=== PATIENT | male | born 1980 | race Caucasian/White ===

== ENCOUNTER 2019-12-09 18:27 | Observation (INO) | payer OTHER, SELFPAY ==
[2019-12-09] VITALS (26 sets, daily range): BP systolic 125–162; BP diastolic 61–89; PULSE 100–115; RESP 18–24; TEMP 36.4–36.7; O2SAT 92–100; BMI 65.5
--- NOTE | ~2019-12-09 | XR_ITS ---
XR chest 2V DATE: 12/09/2019 20:15 INDICATION: Shortness of breath. Bilateral leg swelling. TECHNIQUE: PA and lateral views COMPARISON: 09/07/2016 two-view chest FINDINGS: Cardiomegaly. There is mild pulmonary vascular congestion and redistribution. No pulmonary consolidation is evident. No pleural effusion. No pneumothorax. IMPRESSION: Cardiomegaly, mild congestive heart failure Reviewed, dictated and finalized at location A.
--- NOTE | ~2019-12-09 | CT_ITS ---
EXAMINATION: CT abdomen pelvis w con DATE: 12/09/2019 20:06 INDICATION: Low abdominal pain TECHNIQUE: Computed tomography (CT) of the abdomen and pelvis was performed with 100 cc Omnipaque 350 intravenous contrast. Automated exposure control and iterative reconstruction technique were employe d. Exam dose: 1620.09 mGy-cm total exam DLP. COMPARISON: None. FINDINGS: The lung bases are clear of infiltrate or consolidation. Mild cardiomegaly. No pericardial or pleural effusion. Small fat-containing right foramen of Bochdalek hernia There is surface nodularity of liver suggestive of cirrhosis. There is splenomegaly, spleen measuring almost 20 cm vertical dimension. There is suggestion of cholelithiasis. There are considerable limitations and poor soft tissue detail due to morbid obesity, but no obvious hepatic, splenic, pancreatic, adrenal or renal space-occupying mass lesion is detected. No apparent u rinary tract calculus or hydroureteronephrosis. The urinary bladder is essentially unremarkable, agai n given the limitations due to patient size. Diverticulosis of the colon; no CT evidence of diverticulitis. No bowel obstruction, bowel wall thick ening, pneumatosis or intraperitoneal free air. Normal caliber of the abdominal aorta. No intraperitoneal or retroperitoneal or pelvic mass lesion or adenopathy or ascites is evident. Diffuse idiopathic skeletal hyperostosis of the lower thoracic spine. Bilateral hip osteoarthritis. IMPRESSION: Limited examination due to morbid obesity Suggestion of cirrhosis Splenomegaly Suggestion of cholelithiasis; consider sonographic correlation Diverticulosis of the colon Reviewed, dictated and finalized at Location A. Reviewed, dictated and finalized at location A.
--- NOTE | ~2019-12-09 | CT_ITS ---
EXAMINATION: CTA chest PE protocol DATE: 12/09/2019 21:03 INDICATION: Shortness of breath TECHNIQUE: Computed tomography angiography (CTA) of the chest was performed with 100 mL Omnipaque-350 intravenous contrast timed to evaluate the pulmonary arteries. Coronal maximum intensity projection 3D-reconstructions were created by the technologist. Automated exposure control and iterative reconst ruction technique were employed. Exam dose: 895.85 mGy-cm total exam DLP. COMPARISON: 12/08/2021 view chest FINDINGS: Examination limited due to body habitus. No central pulmonary embolus is identified. There is limited detail of the peripheral pulmonary arteries. Approximately 12 x 24 mm prevascular lymph node; otherwise no hilar or mediastinal mass lesion or lym phadenopathy. No thoracic aortic aneurysm or dissection is evident. Heart size within normal range. No pericardial or pleural effusion. No pulmonary infiltrate or consolidation. Surface nodularity of liver is suggested. Splenomegaly. IMPRESSION: No evidence of central pulmonary embolism; limited detail of the peripheral pulmonary ar teries Reviewed, dictated and finalized at Location A. Reviewed, dictated and finalized at location A. IMPRESSION: No evidence of central pulmonary embolism; limited detail of the p eripheral pulmonary arteries
--- NOTE | 2019-12-09 18:39 | ED.GENADULT ---
HPI - General Adult General Chief complaint: Skin/Abscess/Foreign Body Stated complaint: Bilateral Leg/Foot Swelling Time Seen by Provider: 12/09/19 18:38 Source: patient Mode of arrival: ambulatory Limitations: no limitations History of Present Illness HPI narrative: 39-year-old male patient presents to the emergency department with complaints of bilateral lower extremity swelling and abdominal pain. Patient states about 4 weeks ago he was admitted to [facility] with cellulitis of the abdomen. Patient states that he had IV antibiotics and they discharged him home and he was feeling better but states that his symptoms quickly returned. Patient states that now he is having swelling to his abdomen along with increased swelling to the lower extremities and states that his right foot and leg are more painful than the left. Patient states he has not been walking around much and is been very sedentary. Patient states he has had a little bit of shortness of breath but does have a history of asthma and COPD. Patient denies any chest pain. Patient denies any fevers. Patient states he has had some chills and sweats recently. Denies any history of diabetes. Patient states he does not have a primary doctor however he recently got insurance about a month ago and is supposed to be seeing a new doctor this coming Tuesday. Related Data Home Medications Medication Instructions Recorded Confirmed methocarbamol mg 12/09/19 nifedipine PO 12/09/19 12/09/19 Allergies Allergy/AdvReac Type Severity Reaction Status Date / Time amoxicillin Allergy Unknown Anaphylaxis Verified 12/09/19 18:37 Penicillins Allergy Unknown Anaphylactic Verified 12/09/19 18:37 Shock Review of Systems Review of Systems: Narrative: CONSTITUTIONAL: Denies fever, positive chills, and sweats. EYES: Denies visual changes, redness, or discharge. ENT: Denies rhinorrhea, congestion, sore throat, or otalgia. CARDIOVASCULAR: Denies chest pain, palpitations, or edema. RESPIRATORY: Denies cough, positive dyspnea. GASTROINTESTINAL: Positive abdominal pain, nausea, denies vomiting, or diarrhea. GENITOURINARY: Denies dysuria or hematuria. SKIN: Denies rash or itching. MUSCULOSKELETAL: Denies back pain, joint pain, or myalgia. Positive lower extremity swelling and pain to the right foot. NEUROLOGIC: Denies headache, numbness, or weakness. PSYCHIATRIC: Denies anxiety or depression. [facility] Comments At the time of my signature I agree with nursing past medical history, surgical, social, and family history. There is no relevant family history pertinent to the presenting complaint. Exam Narrative: Exam Narrative: GENERAL: Well-appearing, well-nourished, and in no acute distress. HEAD: Normocephalic, atraumatic. EYES: PERRLA and EOMI. ENT: Nares clear, no rhinorrhea or epistaxis. Mucous membranes moist. NECK: Supple. No lymphadenopathy CHEST: Patient has slight rhonchi noted to the right lobe on expiratory. No obvious wheezing. Hard to hear the lungs well due to patient's habitus. No respiratory distress. Patient able talk in clear complete sentences. HEART: Regular rate and rhythm. No murmur heard. Normal peripheral pulses. ABDOMEN: Distended abdomen. The bilateral lower abdomen is hard and has multiple pustules, warm with erythema noted.. No guarding, rebound tenderness, or rigid. No pulsatilla masses. Unable to assess patient's bowel sounds due to his habitus.. No organomegaly. Negative Valenzuela?s sign. No periumbicial tenderness. No scars or surface trauma. EXTREMITIES: Normal range of motion. Patient has approximately 1-2+ pitting edema noted to bilateral lower extremities. The right foot is more swollen than the left with erythema and warmth present. DP pulses palpated to the left foot, decreased DP pulses noted on the right foot. SKIN: Warm, dry, no rash. NEURO: No focal deficits. Alert and oriented x3. Course Reevaluation(s) Reevaluation #1: Spoke
--- NOTE | 2019-12-09 18:48 | ECG_ITS ---
Measurements Intervals [place] Rate: 106 P: 44 ID: [id number] QRS: -1 QRSD: 93 T: 31 QT: 353 QTc: 470 Interpretive Statements SINUS TACHYCARDIA BASELINE ARTIFACT- I, II, III ABNORMAL ECG Electronically Signed On 12-09-2019 20:46:02 CDT by Tao Muller D.O.
[2019-12-09] MEDS: MORPHINE SULFATE 4 MG/ML INJ IV PUSH (19:08)
[2019-12-09] MEDS: ONDANSETRON INJ 4 MG/2 ML VIAL IV PUSH (19:08)
--- NOTE | 2019-12-09 19:10 | PC.NURSE ---
Report received from KASHMIR Julio. Assumed care of patient.
[2019-12-09 19:22] LABS: Basophils Percent Auto 0.3 % (0.2-1.2); Eosinophils Absolute Auto 0.1 K/mm3 (0-0.3); Hematocrit 35.6 % (42.0-52.0); Hemoglobin 11.8 g/dL (14.0-18.0); Immature Granulocyte Absolute 0.01 K/mm3 (0.00-0.031); Immature Granulocyte Percent A 0.3 % (0-0.5); Immature Platelet Fraction Pct 4.1 % (0.9-11.2); Lymphocytes Absolute Auto 1.12 K/mm3 (0.9-3.2); Lymphocytes Percent Auto 30.1 % (18.3-44.2); Mean Corpuscular HGB Conc 33.1 g/dl (32-36); Mean Corpuscular Hemoglobin 29.3 pg (26-34); Mean Corpuscular Volume 88.3 fl (80-100); Mean Platelet Volume 11.6 fl (7.4-10.4); Monocytes Absolute Auto 0.3 K/mm3 (0.1-0.6); Monocytes Percent Auto 8.1 % (2.6-8.5); Neutrophils Absolute Auto 2.2 K/mm3 (1.3-6.7); Neutrophils Percent Auto 58.2 % (45.5-73.1); Platelet Count Result 80 k/mm3 (150-375); Red Blood Count 4.03 M/mm3 (4.6-6.20); Red Cell Distribution Width 14.6 % (11.5-14.5); White Blood Count 3.7 K/mm3 (4.5-10.0)
[2019-12-09 19:31] LABS: Lactic Acid Reflex 2.2 mmol/L (0.7-2.1)
[2019-12-09 19:33] LABS: INR 1.5; Prothrombin Time 17.5 Seconds (11.1-14.7)
[2019-12-09 19:34] LABS: Alanine Aminotransferase 28 U/L (4-50); Albumin Level 3.4 g/dL (3.5-5.1); Alkaline Phosphatase 170 U/L (38-126); Aspartate Amino Transferase 53 U/L (17-59); Bilirubin,Total 1.6 mg/dL (0.2-1.3); Blood Urea Nitrogen 13 mg/dL (9-20); Calcium 8.1 mg/dL (8.4-10.2); Carbon Dioxide 25 mmol/L (22-30); Chloride 105 mmol/L (98-107); Estimated CRCL calculation 214 ml/min; Estimated Glomerular Filt Rate > 60; Glucose 196 mg/dL (75-110); Potassium 3.6 mmol/L (3.4-5.0); Sodium 136 mmol/L (137-145)
[2019-12-09 19:34] LABS: Partial Thromboplastin Time 34.4 SECONDS (22.3-36.8)
[2019-12-09 19:46] LABS: NT Pro B Type Natriuretic Pept 97 PG/ML (5-100); Troponin I 0.045 ng/mL (0.000-0.034)
[2019-12-09 20:10] LABS: D Dimer 1.97 ug/mL (<0.48)
[2019-12-09] MEDS: ASPIRIN 81 MG CHEWABLE TABLET 324 MG PO (20:12)
[2019-12-09] MEDS: SODIUM CHLORIDE 0.9% IV 1,000 ML 999 ML IV CONT (20:49)
[2019-12-09 22:18] LABS: Reflex Lactic Acid Yes or No Add Lactic
[2019-12-09 22:49] LABS: Troponin I 0.061 ng/mL (0.000-0.034)
[2019-12-10] VITALS (13 sets, daily range): BP systolic 143–155; BP diastolic 59–85; PULSE 91–105; RESP 18–22; TEMP 36.3–36.9; O2SAT 92–98
[2019-12-10 00:23] LABS: Glucose Point of Care 109 (65-105)
--- NOTE | 2019-12-10 00:37 | PC.NURSE ---
This patient, Vignesh Shaffer, was admitted to IMU Room 212-01 ON 12/09/19 at 2308. Patient/family oriented to hospital policies and general routines including ID bracelet, bed and alarms, visiting hours, pain management, procedures, bathroom and other care routines, personal items, smoking policy, room service/diet, and visiting hours. Valuables list has been completed. Information on how to activate the Rapid Response Team has been discussed. Patient/Family are encouraged to report perceived risks to care and to ask questions if they do not understand what they are told or what they should do.
[2019-12-10 00:46] LABS: Add Urine Microscopic? YES; Appearance Urine Clear (Clear); Bilirubin Urine Negative (Negative); Blood Urine Negative (Negative); Color Urine Yellow (Yellow); Glucose Urine UA 1+ mg/dL (Negative); Ketones Urine Negative (Negative); Leukocyte Esterase Ur Negative LEU/UL (Negative); Mucus Urine Rare /lpf; Nitrate Urine Negative (Negative); Protein Urine Negative (Negative); RBC Urine 0-2 /hpf (0-2); Urobilinogen Urine Negative mg/dL (<2.0)
--- NOTE | 2019-12-10 00:48 | ECHO_ITS ---
Patient Info Name: Vignesh Shaffer Age: 39 years : 1980 Gender: Male Ht: 70 in Wt: 457 lbs BSA: 3.33 m2 HR: 105 bpm BP: 148 / 75 mmHg Heart Rhythm: Tachycardia Technical Quality: Poor Exam Date: 12/10/2019 10:52 AM Exam Location: [facility] Patient Status: Inpatient Admit Date: 12/09/2019 Staff Ordering Physician: Abraham Mercedes MD Hogshead Mat Inspector: Chun Flores RDCS Attending Provider: Abraham Mercedes MD Referring Physician: Mago ALEMAN; Exam Type: CA echo dop color flow w con Study Info Indications I50.9 - Heart failure, unspecified Complete two-dimensional, color flow and Doppler transthoracic echocardiogram is performed with contrast to opacify the left ventricle and to improve the deliniation of the left ventricle endocardial borders. Contrast/Agitated Saline Contrast/Ag. Saline: Definity Amount: 3.00 ml Administered By: Sarah Berger RN Existing IV Access: Yes Reason for Poor Study: patient body habitus History/Risk Factors Edema; HTN, SOB, elevated trops. Summary 1. Technically difficult study with limited views. Despite Definity contrast administration regional wall motion assessment limited. 2. Increased aortic valve velocity secondary to hyperdynamic LV systolic function. 3. Left ventricular systolic function is hyperdynamic, estimated at >70%. 4. There is mildly increased left ventricular wall thickness. 5. The left ventricular diastolic function is normal. 6. There is trace tricuspid valve regurgitation. 7. Mild pulmonary hypertension, estimated pulmonary arterial systolic pressure is 41 mmHg. Left Ventricle Technically difficult study with limited views. Despite Definity contrast administration regional wall motion assessment limited. Left ventricular chamber dimension is normal. Left ventricular systolic function is hyperdynamic, estimated at >70%. There is mildly increased left ventricular wall thickness. The left ventricular diastolic function is normal. Right Ventricle Right ventricular chamber dimension is not well visualized. Left Atria Left atrial chamber dimension is not well visualized. Right Atria Right atrial chamber dimension is not well visualized. Aortic Valve Increased aortic valve velocity secondary to hyperdynamic LV systolic function. The aortic valve is not well visualized. There is no aortic valve stenosis. Pulmonic Valve The pulmonic valve is not well visualized. Mitral Valve The mitral valve has not well visualized. Tricuspid Valve The tricuspid valve leaflets are not well visualized. There is trace tricuspid valve regurgitation. Mild pulmonary hypertension, estimated pulmonary arterial systolic pressure is 41 mmHg. Pericardium/Pleural The pericardium appears not well visualized. Aorta The aortic root size at the sinus of Valsalva is normal. Left Ventricular Outflow Tract Name Value Normal LVOT 2D LVOT Diameter 2.17 cm LVOT Doppler LVOT Peak Gradient 8 mmHg LVOT Mean Gradient 4 mmHg LVO
[2019-12-10] MEDS: FUROSEMIDE INJ 40 MG/4 ML VIAL IV PUSH (01:22)
[2019-12-10 01:48] LABS: Troponin I 0.072 ng/mL (0.000-0.034)
--- NOTE | 2019-12-10 05:37 | PM.IMHP ---
H&P: HPI History of Present Illness Chief complaint: cellulitis Narrative: This is a pleasant 39 year old morbidly obese male who is known to have chronic HTN and chronic back pain who presented to the hospital with a complaint of bilateral lower extremity swelling and pain. The patient was recently admitted to [facility] approximately a month ago where he was treated for abdominal wall cellulitis. He states that since his discharge he has had ongoing lower abdominal redness although he has not had any pain. He reports increased lower extremity swelling and abd swelling since his last hospitalization. He has chronic shortness of breath which he attributes to his asthma but has recently noticed that his shortness of breath is much worse with any exertion. He spends most of his time sitting around and it has become difficult for him to even walk now. He denies any recent fevers, chills, cough, nausea, vomiting, dysuria, hematuria, rectal bleeding, diarrhea or focal neurological deficits. The patient was evaluated in the ER tonight and was incidentally found to have an elevated troponin. CTA chest for PE was performed and was negative for acute PE. The pateint was treated with IV antibiotics for presumed abdominal wall cellulitis. He states that he has not had any abdominal discomfort and that his abd wall redness hasn't changed in a few weeks. We have been asked to admit the patient to the hospital for his elevated troponin. Cardiology was consulted by ER provider. Review of Systems Review of Systems: All systems reviewed & are unremarkable except as noted in HPI and below PMFSH Past Medical History Medical History Asthma Chronic back pain Cirrhosis H/O: HTN (hypertension) Thrombocytopenia Surgical History Surgical History (Updated 12/12/19 @ 06:38 by Abraham Mercedes MD) Surgical history unknown Family History Family History Mother Diabetes mellitus Atrial fibrillation Father Obstructive sleep apnea Congestive heart failure Chronic obstructive pulmonary disease Bronchitis Sibling Cirrhosis Scoliosis Social History Social History Smoking status: Never smoker Second hand tobacco smoke exposure: Yes Alcohol intake: former Substance use type: does not use Gender identity (if verbalized by the patient): Male Spiritual care concerns: No Meds Home Medications and Allergies Home Medications Medication Instructions Recorded Confirmed Type methocarbamol 500 mg PRN 12/09/19 12/10/19 History nifedipine 30 mg PO DAILY 12/09/19 12/10/19 History Allergies Allergy/AdvReac Type Severity Reaction Status Date / Time amoxicillin Allergy Unknown Anaphylaxis Verified 12/09/19 18:37 Penicillins Allergy Unknown Anaphylactic Verified 12/09/19 18:37 Shock Vital Signs Vital Signs - 24 hr 12/09/19 18:31 12/09/19 18:35 12/09/19 18:37 Temperature 36.7 C Pulse Rate 115 H 115 H 112 H Respiratory Rate 19 22 H 20 Blood Pressure 142/71 H 142/71 H Pulse Oximetry 100 98 98 12/09/19 18:45 12/09/19 18:46 12/09/19 19:00 Temperature Pulse Rate 106 H Respiratory Rate 21 H Blood Pressure 159/73 H Pulse Oximetry 99 98 96 12/09/19 19:01 12/09/19 19:15 12/09/19 19:16 Temperature Pulse Rate 105 H 103 H 106 H Respiratory Rate 21 H 18 20 Blood Pressure 146/75 H 154/81 H Pulse Oximetry 92 95 95 12/09/19 19:30 12/09/19 19:31 12/09/19 19:45 Temperature Pulse Rate 104 H 105 H 104 H Respiratory Rate 21 H Blood Pressure 150/84 H Pulse Oximetry 95 95 95 12/09/19 19:46 12/09/19 20:13 12/09/19 20:15 Temperature Pulse Rate 104 H 107 H 108 H Respiratory Rate 20 19 Blood Pressure 147/85 H Pulse Oximetry 93 99 97 12/09/19 20:30 12/09/19 20:45 12/09/19 21:05 Temperature Pulse Ra
[2019-12-10 05:40] LABS: Basophils Percent Auto 0.6 % (0.2-1.2); Eosinophils Absolute Auto 0.1 K/mm3 (0-0.3); Hematocrit 34.7 % (42.0-52.0); Hemoglobin 11.5 g/dL (14.0-18.0); Immature Granulocyte Absolute 0.01 K/mm3 (0.00-0.031); Immature Granulocyte Percent A 0.3 % (0-0.5); Immature Platelet Fraction Pct 5.1 % (0.9-11.2); Lymphocytes Absolute Auto 1.06 K/mm3 (0.9-3.2); Lymphocytes Percent Auto 32.2 % (18.3-44.2); Mean Corpuscular HGB Conc 33.1 g/dl (32-36); Mean Corpuscular Hemoglobin 29.6 pg (26-34); Mean Corpuscular Volume 89.2 fl (80-100); Mean Platelet Volume 11.3 fl (7.4-10.4); Monocytes Absolute Auto 0.3 K/mm3 (0.1-0.6); Monocytes Percent Auto 9.7 % (2.6-8.5); Neutrophils Absolute Auto 1.8 K/mm3 (1.3-6.7); Neutrophils Percent Auto 54.2 % (45.5-73.1); Platelet Count Result 68 k/mm3 (150-375); Red Blood Count 3.89 M/mm3 (4.6-6.20); Red Cell Distribution Width 14.7 % (11.5-14.5); White Blood Count 3.3 K/mm3 (4.5-10.0)
[2019-12-10] MEDS: ACETAMINOPHEN 325 MG TABLET 650 MG PO ×3 (05:43→20:11)
[2019-12-10 05:46] LABS: Alanine Aminotransferase 29 U/L (4-50); Albumin Level 3.4 g/dL (3.5-5.1); Alkaline Phosphatase 170 U/L (38-126); Aspartate Amino Transferase 57 U/L (17-59); Bilirubin,Total 1.7 mg/dL (0.2-1.3); Blood Urea Nitrogen 10 mg/dL (9-20); Calcium 7.9 mg/dL (8.4-10.2); Carbon Dioxide 28 mmol/L (22-30); Chloride 102 mmol/L (98-107); Estimated CRCL calculation 246 ml/min; Estimated Glomerular Filt Rate > 60; Glucose 104 mg/dL (75-110); Potassium 3.6 mmol/L (3.4-5.0); Sodium 133 mmol/L (137-145)
[2019-12-10 06:51] LABS: Troponin I 0.075 ng/mL (0.000-0.034)
[2019-12-10 08:08] LABS: Glucose Point of Care 93 (65-105)
[2019-12-10] MEDS: NIFEdipine 30 MG TAB.ER.24 PO (09:05)
[2019-12-10] MEDS: PERFLUTREN LIPID MICROSPHERES 1.5 ML VIAL DILUTED TO 10 ML TOTAL VOLUME IV PUSH (11:17)
[2019-12-10 13:04] LABS: Glucose Point of Care 108 (65-105)
--- NOTE | 2019-12-10 13:18 | PM.CNCAR ---
Assessment and Plan Assessment and plan (1) Elevated troponin: Code(s): R79.89 - Other specified abnormal findings of blood chemistry Status: Acute Assessment and Plan: Indeterminate, clinically consistent with non [place] troponin elevation or type II infarction not secondary to ACS or acute plaque rupture. 2D Echo to assess LV/RV size/function, valve pathology pulmonary pressures. Further recommendation to follow. No indication to pursue ischemic evaluation at this time. No ischemic changes on EKG. Caution with antiplatelets at this time. DVT prophylaxis SCDs. (2) Edema: Code(s): R60.9 - Edema, unspecified Status: Acute Assessment and Plan: Clinically, patient is not in decompensated heart failure. BNP 97. Lungs clear to auscultation on room air, CT without PE or pulmonary vascular congestion. If anything, right heart failure possibility in general given morbid obesity, GENA although treated. Additional considerations include venous compression underlying liver disease given concern for cirrhotic findings, splenomegaly particularly in light of thrombocytopenia. If patient responded favorably with regression reduction in edema with diuretic therapy this would be reasonable, however, patient is not in clinically acute decompensated heart failure. I am more concerned with regards to GI etiology given hepatic findings, splenomegaly (3) Pancytopenia: Code(s): D61.818 - Other pancytopenia Status: Acute Assessment and Plan: Defer to primary service. Mild pancytopenia, Alk Phos elevation with AST/ALT in normal range, mild coagulopathy INR 1.5, but with significant thrombocytopenia. Discussed differential diagnosis in detail patient. Need to review historical data for comparison. Pt reports a h/o heavy ETOH abuse in the past but none for years. (4) Coagulopathy: Code(s): D68.9 - Coagulation defect, unspecified Status: Acute Assessment and Plan: As above, INR 1.5, moderate to severe thrombocytopenia. (5) Cellulitis: Qualifiers: Site of cellulitis: trunk Site of cellulitis of trunk: abdominal wall Qualified Code(s): L03.311 - Cellulitis of abdominal wall Code(s): L03.90 - Cellulitis, unspecified Status: Acute Assessment and Plan: Per primary service. (6) Asthma: Qualifiers: Asthma complication type: unspecified Asthma persistence: unspecified Asthma severity: unspecified severity Qualified Code(s): J45.909 - Unspecified asthma, uncomplicated Code(s): J45.909 - Unspecified asthma, uncomplicated Status: Chronic Assessment and Plan: Stable, no acute issues. (7) GENA on CPAP: Code(s): G47.33 - Obstructive sleep apnea (adult) (pediatric); Z99.89 - Dependence on other enabling machines and devices Status: Acute Assessment and Plan: Compliance with CPAP (8) Hypertension: Code(s): I10 - Essential (primary) hypertension Status: Acute Assessment and Plan: BP mildly elevated. He is not currently on direct medical therapy. Nifedipine may also contribute lower extremity edema. (9) Morbid obesity: Code(s): E66.01 - Morbid (severe) obesity due to excess calories Status: Chronic Assessment and Plan: Lifestyle modification, weight loss and reduction Clinic intake counseling. History of Present Illness History of Present Illness Consult date/time: Date of service: 12/10/19 13:18 This is a cardiology consultation at the request of Dr. Mercedes [facility] service for opinion regarding elevated troponin. Requesting physician: Abraham Mercedes MD Consult reason: Other (Elevated troponin) Reason For Visit: cellulitis Narrative: Patient is a pleasant 39-year-old morbidly obese male with a past medical history significant for hypertension, chronic back pain who presented to [facility] with complaints of 1 week worsening bilateral lower extrem
[2019-12-10 16:59] LABS: Glucose Point of Care 116 (65-105)
--- NOTE | 2019-12-10 18:55 | PM.IMPN ---
Progress Note: A&P Assessment and Plan (1) Anasarca: Code(s): R60.1 - Generalized edema Status: Acute Assessment and Plan: r/o acute on chronic CHF. The patient is clearly fluid overloaded. I suspect that he does not have abd wall cellulitis and instead has abdominal wall erythema secondary to abdominal wall edema. We will discontinue IV antibiotics and administer IV lasix. Monitor fluid status. Is and Os, daily weights. Obtain recent hospitalization records from [facility]. 12/10/19 18:55 Patient is a 39-year-old male morbidly obese with BMI 65 presented emergency department with a complaint of shortness of breath and redness swelling along abdominal wall with history of cellulitis, and also found to elevated tropes patient is seen by neurologist does not suspect acute coronary syndrome as patient BNP is close to normal highly unlikely patient is a decompensated cardiac as patient's ejection fraction is close to 70%, patient also has elevated D-dimer CTA of the chest did not show any pulmonary emboli, patient is a thrombocytopenia slightly elevated INR most likely secondary to fatty liver, patient is being treated with IV antibiotics for abdominal wall cellulitis. Along the abdomen patient has a hyperemia unlikely cellulitis will continue to monitor (2) Elevated troponin: Code(s): R79.89 - Other specified abnormal findings of blood chemistry Status: Acute Assessment and Plan: r/o ACS vs. Troponin leak. Trend troponin. No chest pain tonight. Monitor for chest pain. Cardiology has been consulted by ER provider. (3) H/O: HTN (hypertension): Code(s): Z86.79 - Personal history of other diseases of the circulatory system Status: Chronic Assessment and Plan: Monitor blood pressure. Continue nifedipine PO. (4) Morbid obesity: Code(s): E66.01 - Morbid (severe) obesity due to excess calories Status: Chronic Assessment and Plan: Healthy lifestyle choices were encouraged. (5) Asthma: Qualifiers: Asthma severity: unspecified severity Asthma persistence: unspecified Asthma complication type: unspecified Qualified Code(s): J45.909 - Unspecified asthma, uncomplicated Code(s): J45.909 - Unspecified asthma, uncomplicated Status: Chronic Assessment and Plan: Continue bronchodilators. Subjective Date/time seen: 12/10/19 18:55 Patient is a 39-year-old male morbidly obese with BMI 65 presented emergency department with a complaint of shortness of breath and redness swelling along abdominal wall with history of cellulitis, and also found to elevated tropes patient is seen by neurologist does not suspect acute coronary syndrome as patient BNP is close to normal highly unlikely patient is a decompensated cardiac as patient's ejection fraction is close to 70%, patient also has elevated D-dimer CTA of the chest did not show any pulmonary emboli, patient is a thrombocytopenia slightly elevated INR most likely secondary to fatty liver, patient is being treated with IV antibiotics for abdominal wall cellulitis. Review of Systems Review of Systems: All systems reviewed & are unremarkable except as noted in HPI and below Exam Narrative: Exam Narrative: Morbidly obese BMI of 65 Const: General: no acute distress and uncomfortable HENMT: General nose exam: Normal nares present Mouth: Yes moist mucous membranes Eyes: General: appearance normal, both eyes and all related structures Sclera: sclerae normal Neck: Neck: supple Resp: Effort & Inspection: normal respiratory effort Auscultation: clear to auscultation bilaterally Cardio: Rate: regular rate Rhythm: regular rhythm GI: Auscultation: normal bowel sounds Other: Morbidly obese Skin: Other: Along the abdomen patient has a hyperemia unlikely cellulitis will continue to monitor Neuro: Speech: normal speech Sensory Exam: normal sensation Extrem: General: normal to inspection Psych
--- NOTE | 2019-12-10 19:29 | PC.NURSE ---
Report given to KASHMIR Eric on 2nd medical. Patient will be moved to room 251.
[2019-12-10 21:29] LABS: Glucose Point of Care 131 (65-105)
[2019-12-11] MEDS: MORPHINE SULFATE 4 MG/ML INJ IV PUSH (01:54)
[2019-12-11] MEDS: ONDANSETRON INJ 4 MG/2 ML VIAL IV PUSH (01:55)
[2019-12-11 05:55] LABS: Hematocrit 33.5 % (42.0-52.0); Hemoglobin 11.1 g/dL (14.0-18.0); Immature Platelet Fraction Pct 5.9 % (0.9-11.2); Mean Corpuscular HGB Conc 33.1 g/dl (32-36); Mean Corpuscular Volume 87.5 fl (80-100); Mean Platelet Volume 10.9 fl (7.4-10.4); Platelet Count Result 65 k/mm3 (150-375); Red Blood Count 3.83 M/mm3 (4.6-6.20); Red Cell Distribution Width 14.5 % (11.5-14.5); White Blood Count 3.5 K/mm3 (4.5-10.0)
[2019-12-11 06:00] VITALS: BP 136/57; PULSE 92; RESP 18; TEMP 36.7; O2SAT 96
[2019-12-11 06:09] LABS: Alanine Aminotransferase 28 U/L (4-50); Albumin Level 3.4 g/dL (3.5-5.1); Alkaline Phosphatase 160 U/L (38-126); Aspartate Amino Transferase 53 U/L (17-59); Bilirubin,Total 1.6 mg/dL (0.2-1.3); Blood Urea Nitrogen 11 mg/dL (9-20); Carbon Dioxide 28 mmol/L (22-30); Chloride 102 mmol/L (98-107); Estimated CRCL calculation 290 ml/min; Estimated Glomerular Filt Rate > 60; Glucose 107 mg/dL (75-110); Potassium 3.8 mmol/L (3.4-5.0); Sodium 135 mmol/L (137-145)
[2019-12-11 07:53] LABS: Glucose Point of Care 94 (65-105)
[2019-12-11 08:00] VITALS: PULSE 92; RESP 18; O2SAT 96
[2019-12-11] MEDS: NIFEdipine 30 MG TAB.ER.24 PO (08:01)
[2019-12-11 11:37] LABS: Glucose Point of Care 115 (65-105)
--- NOTE | 2019-12-11 13:15 | PM.IMPN ---
Progress Note: A&P Assessment and Plan (1) Anasarca: Code(s): R60.1 - Generalized edema Status: Acute Assessment and Plan: 12/11/19 13:15 r/o acute on chronic CHF. The patient is clearly fluid overloaded. I suspect that he does not have abd wall cellulitis and instead has abdominal wall erythema secondary to abdominal wall edema. We will discontinue IV antibiotics and administer IV lasix. Monitor fluid status. Is and Os, daily weights. Obtain recent hospitalization records from [facility]. 12/10/19 18:55 Patient is a 39-year-old male morbidly obese with BMI 65 presented emergency department with a complaint of shortness of breath and redness swelling along abdominal wall with history of cellulitis, and also found to elevated tropes patient is seen by quality facilitator does not suspect acute coronary syndrome as patient BNP is close to normal highly unlikely patient is a decompensated cardiac as patient's ejection fraction is close to 70%, patient also has elevated D-dimer CTA of the chest did not show any pulmonary emboli, patient is a thrombocytopenia slightly elevated INR most likely secondary to, Liver cirrhosis and splenomegaly etiology uncertain will consult GI for further recommendation, patient is being treated with IV antibiotics for abdominal wall cellulitis., overall patient states is feeling better not a short of breath as as when he came in, he denies any chest pain palpitation fever or chills. (2) Elevated troponin: Code(s): R79.89 - Other specified abnormal findings of blood chemistry Status: Acute Assessment and Plan: r/o ACS vs. Troponin leak. Trend troponin. No chest pain tonight. Monitor for chest pain. Cardiology has been consulted by ER provider. (3) H/O: HTN (hypertension): Code(s): Z86.79 - Personal history of other diseases of the circulatory system Status: Chronic Assessment and Plan: Monitor blood pressure. Continue nifedipine PO. (4) Morbid obesity: Code(s): E66.01 - Morbid (severe) obesity due to excess calories Status: Chronic Assessment and Plan: Healthy lifestyle choices were encouraged. (5) Asthma: Qualifiers: Asthma severity: unspecified severity Asthma persistence: unspecified Asthma complication type: unspecified Qualified Code(s): J45.909 - Unspecified asthma, uncomplicated Code(s): J45.909 - Unspecified asthma, uncomplicated Status: Chronic Assessment and Plan: Continue bronchodilators. Subjective Date/time seen: 12/11/19 13:15 r/o acute on chronic CHF. The patient is clearly fluid overloaded. I suspect that he does not have abd wall cellulitis and instead has abdominal wall erythema secondary to abdominal wall edema. We will discontinue IV antibiotics and administer IV lasix. Monitor fluid status. Is and Os, daily weights. Obtain recent hospitalization records from [facility]. 12/10/19 18:55 Patient is a 39-year-old male morbidly obese with BMI 65 presented emergency department with a complaint of shortness of breath and redness swelling along abdominal wall with history of cellulitis, and also found to elevated tropes patient is seen by quality facilitator does not suspect acute coronary syndrome as patient BNP is close to normal highly unlikely patient is a decompensated cardiac as patient's ejection fraction is close to 70%, patient also has elevated D-dimer CTA of the chest did not show any pulmonary emboli, patient is a thrombocytopenia slightly elevated INR most likely secondary to, Liver cirrhosis and splenomegaly etiology uncertain will consult GI for further recommendation, patient is being treated with IV antibiotics for abdominal wall cellulitis., overall patient states is feeling better not a short of breath as as when he came in, he denies any chest pain palpitation fever or chills. Review of Systems Review of Systems: All systems reviewed & are unremarkable except as noted in HPI
[2019-12-11 14:00] VITALS: BP 111/51; PULSE 90; RESP 18; TEMP 36.7; O2SAT 92
--- NOTE | 2019-12-11 16:13 | WPDGICN ---
Assessment and Plan Assessment and plan (1) Cirrhosis: Code(s): K74.60 - Unspecified cirrhosis of liver Status: Acute Assessment and Plan: new diagnosis (had low platelets, inr 1.5, albumin 3.5)- most likely related to MUIR (extremely obese with BMI 64) but will obtain blood work to rule out other uncommon conditions including hepatitis, aih, hemochromatosis, etc (2) Morbid obesity: Code(s): E66.01 - Morbid (severe) obesity due to excess calories Status: Chronic Assessment and Plan: ideally he needs to lose weight and even consideration for bariatric surgery (3) Thrombocytopenia: Code(s): D69.6 - Thrombocytopenia, unspecified Status: Acute Assessment and Plan: from cirrhosis (4) GENA on CPAP: Code(s): G47.33 - Obstructive sleep apnea (adult) (pediatric); Z99.89 - Dependence on other enabling machines and devices Status: Acute Assessment and Plan: using cpap now (5) Edema: Code(s): R60.9 - Edema, unspecified Status: Acute GI Consult Note Consult date/time: 12/11/19 16:13 Reason for consult: new diagnosis of cirrhosis HPI: Vignesh Shaffer is a 39 year old male morbidly obese male with history of hypertension, GENA on CPAP, asthma chronic back pain admitted here with 1 week of worsening bilateral lower extremity edema and abdominal discomfort and shortness of breath. He was in [facility] last month and treated for cellulitis of the abdominal wall with antibiotics. He also has chronic exertional dyspnea he attributes to decreased activity, asthma, and chronic back pain. In the ER, troponins were slightly elevated at 0.045-0.075, no chest pain and evaluated by cardiology. CT the abdomen pelvis and CT angiogram of the chest PE protocol technically difficult but suggested possible cirrhotic changes, diverticulosis, no PE but cardiomegaly without heart failure. proBNP was normal at 97. Also had thrombocytopenia. Denies history of liver disease, hepatitis, illicits. He use to drink etoh but quite about 10 years ago (he was a heavy drinker but only weekends). Review of Systems Constitutional: Constitutional: Denies chills and Denies headache(s) Eyes: Eyes: Denies blurry vision ENT: Reports Normal hearing present, Denies headache(s) and Denies neck pain Cardiovascular: Cardiovascular: Denies chest pain, Reports leg edema and Denies dyspnea Respiratory: Respiratory: Reports dyspnea on exertion Gastrointestinal: Gastrointestinal: Reports no additional gastrointestinal complaints Genitourinary: Genitourinary: Denies dysuria Musculoskeletal: Musculoskeletal: Denies neck pain Integumentary/Breasts: Skin/Breast: Denies dry skin Neurologic: Reports Normal hearing present, Denies headache(s) and Denies weakness Psychiatric: Psychiatric: Denies anxiety Endocrine: Endocrine: Denies change in body appearance Hematologic/Lymphatic: Hematologic/Lymphatic: Denies easy bleeding Allergic/Immunologic: Allergic/Immunologic: Denies urticaria PMFSH Past Medical History Medical History Asthma Chronic back pain H/O: HTN (hypertension) Family History Family History Mother Diabetes mellitus Atrial fibrillation Father Obstructive sleep apnea Congestive heart failure Chronic obstructive pulmonary disease Bronchitis Sibling Cirrhosis Scoliosis Social History Social History Smoking status: Never smoker Second hand tobacco smoke exposure: Yes Alcohol intake: former Substance use type: does not use Gender identity (if verbalized by the patient): Male Spiritual care concerns: No Meds Home Medications and Allergies Home Medications Medication Instructions Recorded Confirmed Type methocarbamol 500 mg PRN 12/09/19 12/10/19 History nifed
[2019-12-11 16:21] LABS: Glucose Point of Care 115 (65-105)
[2019-12-11] MEDS: ACETAMINOPHEN 325 MG TABLET 650 MG PO (17:10)
[2019-12-12] VITALS: BP 140/61; PULSE 90; RESP 20; TEMP 36.5; O2SAT 96
[2019-12-12 00:35] LABS: Glucose Point of Care 110 (65-105)
[2019-12-12 02:34] VITALS: PULSE 92; RESP 18; O2SAT 93
[2019-12-12 05:30] LABS: Hematocrit 33.3 % (42.0-52.0); Immature Platelet Fraction Pct 6.1 % (0.9-11.2); Mean Corpuscular Hemoglobin 28.9 pg (26-34); Mean Corpuscular Volume 87.4 fl (80-100); Mean Platelet Volume 10.2 fl (7.4-10.4); Platelet Count Result 61 k/mm3 (150-375); Red Blood Count 3.81 M/mm3 (4.6-6.20); Red Cell Distribution Width 14.5 % (11.5-14.5); White Blood Count 3.1 K/mm3 (4.5-10.0)
[2019-12-12 05:42] LABS: Alanine Aminotransferase 26 U/L (4-50); Albumin Level 3.4 g/dL (3.5-5.1); Alkaline Phosphatase 162 U/L (38-126); Aspartate Amino Transferase 52 U/L (17-59); Bilirubin,Total 1.6 mg/dL (0.2-1.3); Blood Urea Nitrogen 12 mg/dL (9-20); Calcium 7.9 mg/dL (8.4-10.2); Carbon Dioxide 28 mmol/L (22-30); Chloride 104 mmol/L (98-107); Estimated CRCL calculation 287 ml/min; Estimated Glomerular Filt Rate > 60; Glucose 147 mg/dL (75-110); Potassium 3.8 mmol/L (3.4-5.0); Sodium 135 mmol/L (137-145)
[2019-12-12 05:53] LABS: Iron 102 ug/dL (49-181)
[2019-12-12 06:02] LABS: Percent Iron Saturation 30 % (20-50)
[2019-12-12 06:05] VITALS: BP 147/73; PULSE 97; RESP 20; TEMP 36.5; O2SAT 94
[2019-12-12 06:27] LABS: Hepatitis B Surface Antigen Negative (Negative)
[2019-12-12 06:36] LABS: HAV RESULT Reactive (Negative); Hepatitis B Core IgM Result Negative (Negative)
[2019-12-12 06:44] LABS: Hepatitis C Virus Antibody Negative (Negative)
[2019-12-12 07:34] LABS: Glucose Point of Care 107 (65-105)
[2019-12-12 07:54] VITALS: PULSE 97; RESP 20; O2SAT 94
[2019-12-12] MEDS: NIFEdipine 30 MG TAB.ER.24 PO (08:26)
[2019-12-12 11:39] LABS: Glucose Point of Care 98 (65-105)
--- NOTE | 2019-12-12 12:33 | WPDGIPROGNO ---
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 bili 1.6, normal transminases continue with supportive care (2) Cirrhosis: Code(s): K74.60 - Unspecified cirrhosis of liver Status: Acute Assessment and Plan: most likely from [place]- morbidly obese work up to rule out other liver conditions pending (3) Thrombocytopenia: Code(s): D69.6 - Thrombocytopenia, unspecified Status: Acute (4) GENA on CPAP: Code(s): G47.33 - Obstructive sleep apnea (adult) (pediatric); Z99.89 - Dependence on other enabling machines and devices Status: Acute (5) Morbid obesity: Code(s): E66.01 - Morbid (severe) obesity due to excess calories Status: Chronic Assessment and Plan: he needs to lose weight and ideally even bariatric surgery (6) Anasarca: Code(s): R60.1 - Generalized edema Status: Acute Subjective Date/time seen: 12/12/19 12:33 Interval history: no major changes, c/o pain in ankle, less abdominal discomfort Review of Systems Review of Systems: All systems reviewed & are unremarkable except as noted in HPI and below Exam Const: General: cooperative, no acute distress, alert, awake, ill appearing, tired appearing and uncomfortable Nutritional Appearance: obese Orientation/consciousness: patient oriented x3 Other: morbidly obese HENMT: Head: normal to inspection General nose exam: Normal external nose present Face and sinus: normal facial exam Mouth: Yes Normal oral and palatal mucosa present and Yes oropharynx normal Eyes: Pupils: Equal, round and reactive pupils present EOM: EOMs intact bilaterally Neck: Neck: supple and no JVD Lymphatic: lymphadenopathy not noted Resp: Effort & Inspection: normal respiratory effort Cardio: Rate: regular rate Rhythm: regular rhythm Heart sounds: no murmurs GI: Inspection: normal to inspection, Pannus present and obesity GI Palp: No abdominal tenderness and No Firmness to palpation present (GI) Auscultation: normal bowel sounds Rectal Exam: deferred Skin: General skin exam: normal color and other (Mild lower abd wall erythema+ ) Neuro: General: patient oriented x3 Cranial nerves: Yes CN's II-XII intact bilaterally and Yes Equal, round and reactive pupils present Speech: normal speech Motor exam (neuro): 5/5 motor strength present throughout Sensory Exam: normal sensation Extrem: General: normal to inspection and edema (+++ ) Psych: Mental Status: mental status grossly normal Affect: normal affect Objective Data Vital Signs Vital Signs: Vital Signs - 24 hr 12/11/19 14:00 12/12/19 00:00 12/12/19 02:34 Temperature 98.1 F 97.7 F Pulse Rate 90 90 92 Respiratory Rate 18 20 18 Blood Pressure 111/51 L 140/61 Pulse Oximetry 92 96 93 12/12/19 06:05 12/12/19 07:54 Temperature 97.7 F Pulse Rate 97 97 Respiratory Rate 20 20 Blood Pressure 147/73 H Pulse Oximetry 94 94 Intake/Output Intake/Output: Intake & Output 12/09/19 12/10/19 12/11/19 12/12/19 23:59 23:59 23:59 23:59 Intake Total 1000 1345 1060 630 Output Total 2950 900 Balance 1000 -1605 160 630 Meds/Results Medications: Active Medications Generic Name Dose Route Start Last Admin Trade Name Freq PRN Reason Stop Dose Admin Acetaminophen 650 mg 12/10/19 05:34 12/11/19 17:10 Tylenol Tablet PO 650 mg Q6H PRN Administration Mild Pain (1-3) or Fever Morphine Sulfate 4 mg 12/09/19 21:54 12/11/19 01:54 Morphine Sulfate Inj IV PUSH 4 mg Q4H PRN Administration Pain Rated 7-10 Nifedipine 30 mg 12/10/19 09:00 12/12/19 08:26 Procardia Xl PO 30 mg DAILY FRED Administration Ondansetron HCl 4 mg 12/09/19 21:54 12/11/19 01:55 Zofran Inj IV PUSH 4 mg Q4H PRN Administration Nausea Radiology Resul
--- NOTE | 2019-12-12 13:44 | PM.DS ---
DS: Admitting Diagnosis Admitting Diagnosis Admitting Diagnosis: Other specified abnormal findings of blood chemistry DS: Discharge Diagnosis Discharge Diagnosis (1) Anasarca: Code(s): R60.1 - Generalized edema Status: Acute Assessment and Plan: r/o acute on chronic CHF. The patient is clearly fluid overloaded. I suspect that he does not have abd wall cellulitis and instead has abdominal wall erythema secondary to abdominal wall edema. We will discontinue IV antibiotics and administer IV lasix. Monitor fluid status. Is and Os, daily weights. Obtain recent hospitalization records from [facility]. (2) Elevated troponin: Code(s): R79.89 - Other specified abnormal findings of blood chemistry Status: Acute Assessment and Plan: r/o ACS vs. Troponin leak. Trend troponin. No chest pain tonight. Monitor for chest pain. Cardiology has been consulted by ER provider. (3) H/O: HTN (hypertension): Code(s): Z86.79 - Personal history of other diseases of the circulatory system Status: Chronic Assessment and Plan: Monitor blood pressure. Continue nifedipine PO. (4) Morbid obesity: Code(s): E66.01 - Morbid (severe) obesity due to excess calories Status: Chronic Assessment and Plan: Healthy lifestyle choices were encouraged. (5) Asthma: Qualifiers: Asthma severity: unspecified severity Asthma persistence: unspecified Asthma complication type: unspecified Qualified Code(s): J45.909 - Unspecified asthma, uncomplicated Code(s): J45.909 - Unspecified asthma, uncomplicated Status: Chronic Assessment and Plan: Continue bronchodilators. DS: Summary Hospital Course Reason for hospitalization: This is a pleasant 39 year old morbidly obese male who is known to have chronic HTN and chronic back pain who presented to the hospital with a complaint of bilateral lower extremity swelling and pain. The patient was recently admitted to [facility] approximately a month ago where he was treated for abdominal wall cellulitis. He states that since his discharge he has had ongoing lower abdominal redness although he has not had any pain. He reports increased lower extremity swelling and abd swelling since his last hospitalization. He has chronic shortness of breath which he attributes to his asthma but has recently noticed that his shortness of breath is much worse with any exertion. He spends most of his time sitting around and it has become difficult for him to even walk now. He denies any recent fevers, chills, cough, nausea, vomiting, dysuria, hematuria, rectal bleeding, diarrhea or focal neurological deficits. The patient was evaluated in the ER tonight and was incidentally found to have an elevated troponin. CTA chest for PE was performed and was negative for acute PE. The pateint was treated with IV antibiotics for presumed abdominal wall cellulitis. He states that he has not had any abdominal discomfort and that his abd wall redness hasn't changed in a few weeks. We have been asked to admit the patient to the hospital for his elevated troponin. Cardiology was consulted by ER provider. Hospital Course: r/o acute on chronic CHF. The patient is clearly fluid overloaded. I suspect that he does not have abd wall cellulitis and instead has abdominal wall erythema secondary to abdominal wall edema. We will discontinue IV antibiotics and administer IV lasix. Monitor fluid status. Is and Os, daily weights. Obtain recent hospitalization records from [facility]. 12/10/19 18:55 Patient is a 39-year-old male morbidly obese with BMI 65 presented emergency department with a complaint of shortness of breath and redness swelling along abdominal wall with history of cellulitis, and also found to elevated tropes patient is seen by inspector [employer] does not suspect acute coronary syndrome as patient BNP is close to normal highly unlikely patient
[2019-12-14 09:35] LABS: Mitochondrial (M2) Ab (IgG) <=20.0 U (<=20.0)
[2019-12-16 14:38] LABS: Anti Nuclear Antibody Titer 1:40 (Negative)
== END 2019-12-12 14:40 | disposition home or self-care (01) ==
LOC: ANHED 22:03 → ANHIMU 12-10 04:45 → ANH2MED 12-11 09:34 → ANHIMU 12-13 15:35
PROVIDERS: Internal Medicine Gastroenterology; Admitting Provider Family Medicine; Emergency Provider Nurse Practitioner Family; Visit Provider Family Medicine
DX: R60.1 Generalized edema (principal); R79.89 Other specified abnormal findings of blood chemistry; E87.70 Fluid overload, unspecified; K74.60 Unspecified cirrhosis of liver; B15.9 Hepatitis A without hepatic coma; D69.6 Thrombocytopenia, unspecified; D68.9 Coagulation defect, unspecified; D61.818 Other pancytopenia; E66.01 Morbid (severe) obesity due to excess calories; I10 Essential (primary) hypertension; G89.29 Other chronic pain; G47.33 Obstructive sleep apnea (adult) (pediatric); J45.909 Unspecified asthma, uncomplicated; M54.9 Dorsalgia, unspecified; Z99.89 Dependence on other enabling machines and devices; Z68.44 Body mass index [BMI] 60.0-69.9, adult
CPT/HCPCS: 36415; 71046; 71275; 74177; 80053; 80074; 81001; 82104; 82728; 83520; 83540; 83550; 83605; 83880; 84484; 85025; 85027; 85055; 85380; 85610; 85730; 86038; 86039; 86140; 87040; 93005; 96361; 96365; 96366; 96374; 96375; 99285; A9270; C8929; G0378; J1940; J2270; J2405; J3370; J7030; Q9957; Q9967

== ENCOUNTER 2020-09-16 16:08 | Emergency (ER) | payer SELFPAY ==
--- NOTE | ~2020-09-16 | XR_ITS ---
XR chest 2V DATE: 09/16/2020 21:11 INDICATION: Bodyaches. Fatigue. Nausea. Hypertension. TECHNIQUE: AP and lateral views COMPARISON: 12/09/2019 2 view chest 12/09/2019 CT chest pulmonary scan FINDINGS: There is prominence of the cardiac silhouette which may be due to magnification associated with AP projection. Mild cardiomegaly or less likely pericardial effusion is not excluded. No pulmonary infiltrate or consolidation, pulmonary vascular congestion or pleural effusion or pneumo thorax. Diffuse osteopenia. IMPRESSION: Heart size is not optimally evaluated on AP projection because of magnification; cannot e xclude cardiomegaly or less likely pericardial effusion Active pulmonary disease is evident.. Reviewed, dictated and finalized at location A. IMPRESSION: Heart size is not optimally evaluated on AP projection because of m agnification; cannot exclude cardiomegaly or less likely pericardial effusion Active pulmonary disease is evident..
--- NOTE | ~2020-09-16 | CT_ITS ---
EXAMINATION: CTA chest PE protocol EXAM DATE: 09/17/2020 00:12 INDICATION: Shortness of breath. TECHNIQUE: Spiral CTA of the chest (pulmonary arteries) was performed with 100 cc Omnipaque 350 intr avenous contrast injection. Images were acquired during the pulmonary arterial phase. Coronal maxi mum intensity projection 3D-reconstructions were created by the technologist on dedicated workstation . Axial, coronal and sagittal reformatted images were reviewed. The dose-length product (DLP) for t his examination was 1064.25 mGy-cm. The exposure was tailored according to patient size (auto mA ex posure control), and iterative reconstruction (ASIR) was used as additional dose reduction technique. Comparison is made to prior examination from 12/09/2019. FINDINGS: Suboptimal pulmonary arterial opacification. There are no pulmonary emboli in the 1st throu gh 3rd order (central and interlobar) pulmonary arteries. Some loss of attenuation in the left basil ar segmental pulmonary from respiratory motion, these regions not confidently evaluated. No Intralumi nal filling defects identified. No thoracic aortic dissection. Mildly enlarged prevascular lymph node measuring 1.4 x 2.4 cm, not significantly changed compared to prior study and probably reactive The lungs are clear. Tracheobronchial tree is patent. There i s no mediastinal, hilar or axillary lymphadenopathy. There is no pneumothorax. Heart normal in si ze. No evidence of coronary arterial calcification. Probable cirrhosis. There is probable portal h ypertension with recanalized umbilical ligament. Spleen measures 18 x 8 cm greatest axial dimensions. There is thoracic spondylosis without osteoblastic or osteolytic lesions identified. IMPRESSION: 1. Limited left basilar segmental evaluation, but no pulmonary emboli are suspected. 2. Mild mediastinal lymphadenopathy unchanged probably reactive. 3. Cirrhosis, portal hypertension, splenomegaly. Reviewed, dictated and finalized at location A. IMPRESSION: 1. Limited left basilar segmental evaluation, but no pulmonary emboli are susp ected. 2. Mild mediastinal lymphadenopathy unchanged probably reactive. 3. Cirrhosis, portal hypertension, splenomegaly.
[2020-09-16 16:21] VITALS: BP 174/87; PULSE 88; RESP 18; TEMP 36.8; O2SAT 99
[2020-09-16 19:00] VITALS: BP 157/70; PULSE 97; RESP 18; O2SAT 95
--- NOTE | 2020-09-16 20:46 | ED.GENADULT ---
HPI - General Adult General Chief complaint: Unspecified Stated complaint: covid vaccine side effects Time Seen by Provider: 09/16/20 20:43 Source: patient History of Present Illness HPI narrative: Patient is a 40 y/o male complaining of moderate SOB since 3 days ago. He states that he had [employer] COVID vaccine. His SOB is worse with exertion. He also has headache, bodyache, chills, vomiting and diarrhea. He also chronic cough due to COPD. Related Data Home Medications Medication Instructions Recorded Confirmed methocarbamol 500 mg PRN 12/09/19 12/10/19 nifedipine 30 mg PO DAILY 12/09/19 12/10/19 Allergies Allergy/AdvReac Type Severity Reaction Status Date / Time amoxicillin Allergy Unknown Anaphylaxis Verified 09/16/20 16:24 Penicillins Allergy Unknown Anaphylactic Verified 09/16/20 16:24 Shock Review of Systems Constitutional: Constitutional: Denies chills, Denies fever(s), Reports headache(s) and Denies weakness Eyes: Eyes: Denies blurry vision ENT: Reports headache(s) and Denies neck pain Cardiovascular: Cardiovascular: Denies chest pain and Reports dyspnea Respiratory: Respiratory: Denies cough and Reports dyspnea Gastrointestinal: Gastrointestinal: Denies abdominal pain, Reports diarrhea, Reports nausea and Reports vomiting Genitourinary: Genitourinary: Denies hematuria and Denies dysuria Musculoskeletal: Musculoskeletal: Denies back pain, Reports myalgias and Denies neck pain Neurologic: Reports headache(s) and Denies weakness PMFSH Past Medical History Medical History Asthma Chronic back pain Cirrhosis H/O: HTN (hypertension) Hepatitis A Thrombocytopenia Surgical History Surgical History Surgical history unknown Family History Family History Mother Diabetes mellitus Atrial fibrillation Father Obstructive sleep apnea Congestive heart failure Chronic obstructive pulmonary disease Bronchitis Sibling Cirrhosis Scoliosis Social History Social History Smoking status: Never smoker Second hand tobacco smoke exposure: Yes Alcohol intake: former Substance use type: does not use Gender identity (if verbalized by the patient): Male Spiritual care concerns: No Exam Const: General: no acute distress and well developed Nutritional Appearance: obese Orientation/consciousness: oriented to person, oriented to place, oriented to time and patient oriented x3 HENMT: Head: normocephalic Ears: external ears normal General nose exam: Normal external nose present Eyes: General: appearance normal, both eyes and all related structures Conjunctivae: conjunctivae normal Neck: Neck: normal visual inspection and full ROM Chest: Chest palpation & inspection: normal inspection of the chest and no tenderness Resp: Effort & Inspection: normal respiratory effort Auscultation: clear to auscultation bilaterally Cardio: Rate: regular rate Rhythm: regular rhythm GI: GI Palp: No abdominal tenderness and Yes Soft to palpation Skin: General skin exam: normal color and turgor normal Neuro: General: oriented to person, oriented to place, oriented to time and patient oriented x3 Cognition (Neuro): normal cognition Extrem: General: normal to inspection, full ROM and no pedal edema Psych: Appearance: grossly normal Mental Status: mental status grossly normal Affect: normal affect Course Vital Signs Vital signs: Vital Signs Temperature 36.8 C 09/16/20 16:21 Pulse Rate 88 09/16/20 16:21 Respiratory Rate 18 09/16/20 16:21 Blood Pressure 174/87 H 09/16/20 16:21 Pulse Oximetry 99 09/16/20 16:21 Temperature 36.3 C L 09/17/20 01:45 Pulse Rate 80 09/17/20 01:45 Respiratory Rate 16 09/17/20 01:45 Blood Pressure 170/60 H 09/17/20 01:45 Pulse Oximet
[2020-09-16 21:09] LABS: Basophils Percent Auto 0.8 % (0.2-1.2); Eosinophils Absolute Auto 0.2 K/mm3 (0-0.3); Hematocrit 35.1 % (42.0-52.0); Hemoglobin 11.4 g/dL (14.0-18.0); Immature Granulocyte Absolute 0.01 K/mm3 (0.00-0.031); Immature Granulocyte Percent A 0.4 % (0-0.5); Immature Platelet Fraction Pct 4.5 % (0.9-11.2); Lymphocytes Absolute Auto 0.97 K/mm3 (0.9-3.2); Lymphocytes Percent Auto 39.8 % (18.3-44.2); Mean Corpuscular HGB Conc 32.5 g/dl (32-36); Mean Corpuscular Hemoglobin 28.7 pg (26-34); Mean Corpuscular Volume 88.4 fl (80-100); Monocytes Absolute Auto 0.2 K/mm3 (0.1-0.6); Monocytes Percent Auto 8.6 % (2.6-8.5); Neutrophils Percent Auto 41.4 % (45.5-73.1); Platelet Count Result 56 k/mm3 (150-375); Red Blood Count 3.97 M/mm3 (4.6-6.20); Red Cell Distribution Width 15.9 % (11.5-14.5); White Blood Count 2.4 K/mm3 (4.5-10.0)
--- NOTE | 2020-09-16 21:12 | ECG_ITS ---
Measurements Intervals [place] Rate: 90 P: 36 NM: 128 QRS: 8 QRSD: 92 T: 32 QT: 381 QTc: 468 Interpretive Statements SINUS RHYTHM NORMAL ECG Electronically Signed On 09-18-2020 12:47:08 CDT by Tao Muller D.O.
[2020-09-16 21:17] LABS: Alanine Aminotransferase 34 U/L (4-50); Albumin Level 3.3 g/dL (3.5-5.1); Alkaline Phosphatase 162 U/L (38-126); Anion Gap 0 mmol/L (8-16); Aspartate Amino Transferase 82 U/L (17-59); Bilirubin,Total 1.1 mg/dL (0.2-1.3); Blood Urea Nitrogen 9 mg/dL (9-20); Calcium 8.1 mg/dL (8.4-10.2); Carbon Dioxide 30 mmol/L (22-30); Chloride 108 mmol/L (98-107); Estimated CRCL calculation 243 ml/min; Estimated Glomerular Filt Rate > 60; Glucose 102 mg/dL (75-110); Potassium 3.9 mmol/L (3.4-5.0); Sodium 138 mmol/L (137-145)
[2020-09-16 21:26] LABS: NT Pro B Type Natriuretic Pept 60 PG/ML (5-100)
[2020-09-16 23:07] LABS: Add Urine Microscopic? NO; Appearance Urine Clear (Clear); Bacteria Urine Trace /hpf; Bilirubin Urine Negative (Negative); Blood Urine Negative (Negative); Color Urine Yellow (Yellow); Glucose Urine UA Negative (Negative); Ketones Urine Negative (Negative); Leukocyte Esterase Ur Negative LEU/UL (Negative); Mucus Urine Rare /lpf; Nitrate Urine Negative (Negative); Protein Urine Negative (Negative); RBC Urine 0-2 /hpf (0-2); Specific Grav Ur 1.013 (1.001-1.035); Urobilinogen Urine Negative mg/dL (<2.0); WBC Urine 0-3 /hpf
[2020-09-16 23:09] LABS: D Dimer 1.27 ug/mL (<0.48)
[2020-09-17 00:36] VITALS: BP 170/102; PULSE 69; RESP 16; O2SAT 97
[2020-09-17 01:45] VITALS: BP 170/60; PULSE 80; RESP 16; TEMP 36.3; O2SAT 100
== END 2020-09-17 01:46 | disposition home or self-care (01) ==
PROVIDERS: Emergency Provider Emergency Medicine
DX: R06.02 Shortness of breath (principal); M79.10 Myalgia, unspecified site; R51.9 Headache, unspecified; J45.909 Unspecified asthma, uncomplicated; K74.60 Unspecified cirrhosis of liver; I10 Essential (primary) hypertension; K76.6 Portal hypertension; R16.1 Splenomegaly, not elsewhere classified
CPT/HCPCS: 36415; 71046; 71275; 80053; 81003; 83880; 85025; 85055; 85380; 93005; 99284; A9270; Q9967

== ENCOUNTER 2021-01-03 09:49 | Emergency (ER) | payer SELFPAY ==
[2021-01-03] VITALS (35 sets, daily range): BP systolic 112–138; BP diastolic 50–78; PULSE 86–100; RESP 14–27; TEMP 36.4; O2SAT 96–100
--- NOTE | ~2021-01-03 | XR_ITS ---
EXAMINATION: XR chest 2V DATE: 01/03/2021 10:35 INDICATION: Shortness of breath TECHNIQUE: frontal and lateral views of the chest were obtained. COMPARISON: Chest radiograph and CT dated 09/16/2020 FINDINGS: Evaluation of fine pulmonary parenchymal detail is limited by patient body habitus. Cardiomegaly with bilateral paracardial fat pads. No new airspace opacities, pulmonary edema, pleural effusion or pneu mothorax. IMPRESSION: 1. Cardiomegaly. No acute cardiopulmonary disease.. Reviewed, dictated and finalized at location A.
--- NOTE | ~2021-01-03 | CT_ITS ---
EXAMINATION: CTA chest PE abdomen pel DATE: 01/03/2021 12:23 INDICATION: Right-sided abdominal pain post fall. Shortness of breath. TECHNIQUE: Computed tomography (CT) pulmonary angiogram of the chest was performed with 100 mL Omnipa que-350 intravenous contrast. Additional 3D reconstructions utilizing coronal maximum intensity proje ction (MIP) were performed. CT of the abdomen and pelvis was performed with intravenous contrast util izing the same contrast bolus following a short delay. Automated exposure control and iterative recon struction technique were employed. The dose-length product was 2747.65 mGy-cm. COMPARISON: 09/16/2020, 12/09/2019 and 12/09/2019 FINDINGS: Chest: Mild respiratory motion at the lung bases. There is mild streak artifact from dense contrast in the s uperior vena cava and right atrium. Suboptimal contrast opacification of the pulmonary arteries which decreases sensitivity for pulmonary embolism in the segmental and subsegmental pulmonary arteries. N o definitive pulmonary embolism identified. Mild atelectasis at the posterior sulci of the bilateral lower lobes. Heart size is normal. No pericardial or pleural effusion. Thoracic aorta is normal in ca liber with no dissection. Unchanged 1.5 cm prevascular lymph node which is likely reactive. No other new or enlarging thoracic lymphadenopathy. Small sliding-type hiatal hernia. There are bridging osteo phytes at multiple levels in the spine, consistent with diffuse idiopathic skeletal hyperostosis (DIS H). Abdomen/pelvis: Evaluation of the abdomen and pelvis is moderately limited by suboptimal contrast opacification as we ll as prominent quantum mottle, both related to patient body habitus. Nodular cirrhotic liver. Calcif ied gallstones in the partially decompressed gallbladder which is without wall thickening or perichol ecystic inflammatory change to suggest acute cholecystitis. Splenomegaly measuring up to 25.3 cm cons istent with portal hypertension. Pancreas, bilateral adrenal glands and kidneys are normal. Bladder i s normal. No bowel obstruction. Small amount of gas within the normal caliber appendix. Bladder is un remarkable. Small amount of perihepatic ascites. No pathologically enlarged abdominal or pelvic lymph adenopathy. Moderate osteoarthritis at the bilateral hips, sacral iliac joints and lower lumbar facet joints. Subcutaneous edema throughout the anterior wall of the abdomen and pelvis. IMPRESSION: 1. No pulmonary embolism. Sensitivity is mildly decreased in the segmental and subsegmental pulmonary arteries due to suboptimal contrast opacification. 2. Cirrhosis with secondary portal venous hypertension with prominent splenomegaly. 3. Small amount of perihepatic ascites. 4. Cholelithiasis. 5. Small sliding-type hiatal hernia. 6. Evaluation of the abdomen and pelvis moderately limited by suboptimal contrast opacification as we ll as, quadrant 2 mild, both related to patient body habitus. Reviewed, dictated and finalized at location A. IMPRESSION: 1. No pulmonary embolism. Sensitivity is mildly decreased in the segmental and subsegmental pulmonary arteries due to suboptimal contrast opacification. 2. Cirrhosis with secondary portal venous hypertension with prominent splenomeg brook. 3. Small amount of perihepatic ascites. 4. Cholelithiasis. 5. Small sliding-type hiatal hernia. 6. Evaluation of the abdomen and pelvis moderately limited by suboptimal contra st opacification as well as, quadrant 2 mild, both related to patient body habi tus.
--- NOTE | 2021-01-03 09:56 | ECG_ITS ---
Measurements Intervals [place] Rate: 91 P: 30 NE: 145 QRS: 6 QRSD: 94 T: 30 QT: 344 QTc: 424 Interpretive Statements SINUS RHYTHM NORMAL ECG Electronically Signed On 01-03-2021 10:50:34 CDT by Tao Muller D.O.
[2021-01-03 10:39] LABS: Alanine Aminotransferase 59 U/L (4-50); Albumin Level 2.4 g/dL (3.5-5.1); Alkaline Phosphatase 89 U/L (38-126); Anion Gap 6 mmol/L (8-16); Aspartate Amino Transferase 170 U/L (17-59); Basophils Percent Auto 0.9 % (0.2-1.2); Bilirubin,Total 10.9 mg/dL (0.2-1.3); Blood Urea Nitrogen 31 mg/dL (9-20); Calcium 7.4 mg/dL (8.4-10.2); Carbon Dioxide 22 mmol/L (22-30); Chloride 108 mmol/L (98-107); Eosinophils Absolute Auto 0.1 K/mm3 (0-0.3); Eosinophils Percent Auto 3.1 % (0-4.4); Estimated CRCL calculation 124 ml/min; Estimated Glomerular Filt Rate > 60; Glucose 88 mg/dL (65-110); Hematocrit 32.1 % (42.0-52.0); Hemoglobin 10.2 g/dL (14.0-18.0); Immature Granulocyte Absolute 0.06 K/mm3 (0.00-0.031); Immature Granulocyte Percent A 2.6 % (0-0.5); Lymphocytes Absolute Auto 0.46 K/mm3 (0.9-3.2); Lymphocytes Percent Auto 20.3 % (18.3-44.2); Mean Corpuscular HGB Conc 31.8 g/dl (32-36); Mean Corpuscular Hemoglobin 28.3 pg (26-34); Mean Corpuscular Volume 89.2 fl (80-100); Monocytes Absolute Auto 0.5 K/mm3 (0.1-0.6); Monocytes Percent Auto 20.3 % (2.6-8.5); Neutrophils Absolute Auto 1.2 K/mm3 (1.3-6.7); Neutrophils Percent Auto 52.8 % (45.5-73.1); Platelet Count Result 34 k/mm3 (150-375); Potassium 3.8 mmol/L (3.4-5.0); Red Cell Distribution Width 16.7 % (11.5-14.5); Sodium 136 mmol/L (137-145); White Blood Count 2.3 K/mm3 (4.5-10.0)
--- NOTE | 2021-01-03 11:06 | ED.SOB ---
HPI - SOB/Dyspnea General Chief Complaint: Shortness of Breath/Dyspnea Stated Complaint: SOB Time Seen by Provider: 01/03/21 10:12 Source: patient, EMS and old records reviewed Mode of arrival: EMS Limitations: no limitations History of Present Illness HPI Narrative: Patient is a 40-year-old male who presents to emergency department for evaluation of right-sided pain to include the chest wall and flank abdomen region where he has a rash patient with history of cirrhosis heart failure notes he takes water pills only patient lives at home with his he has no current doctors Related Data Home Medications Medication Instructions Recorded Confirmed methocarbamol 500 mg PRN 12/09/19 12/10/19 nifedipine 30 mg PO DAILY 12/09/19 12/10/19 Allergies Allergy/AdvReac Type Severity Reaction Status Date / Time amoxicillin Allergy Unknown Anaphylaxis Verified 09/16/20 16:24 Penicillins Allergy Unknown Anaphylactic Verified 09/16/20 16:24 Shock Review of Systems Review of Systems: All systems reviewed & are unremarkable except as noted in HPI and below PMFSH Past Medical History Medical History (Updated 01/03/21 @ 15:28 by Portillo Reddy PA-C) Asthma Chronic back pain Cirrhosis H/O: HTN (hypertension) Hepatitis A Morbid obesity Thrombocytopenia Surgical History Surgical History Surgical history unknown Family History Family History Mother Diabetes mellitus Atrial fibrillation Father Obstructive sleep apnea Congestive heart failure Chronic obstructive pulmonary disease Bronchitis Sibling Cirrhosis Scoliosis Social History Social History Smoking status: Never smoker Second hand tobacco smoke exposure: Yes Alcohol intake: former Substance use type: does not use Gender identity (if verbalized by the patient): Male Spiritual care concerns: No Exam Narrative: GENERAL: Ill-appearing, morbid obese, and in no acute distress. HEAD: Normocephalic, atraumatic. EYES: PERRLA and EOMI. ENT: Nares clear, no rhinorrhea or epistaxis. Mucous membranes moist. NECK: Supple. No adenopathy or masses. No carotid bruits or JVD CHEST: Diminished on auscultation. No respiratory distress. No wheezes rales or rhonchi HEART: Regular rate and rhythm. No murmur heard. Normal peripheral pulses. ABDOMEN: Soft, tender erythemic area in the soft tissues involving the right upper abdomen with excoriations of the pannus, large pannus and abdomen EXTREMITIES: Normal range of motion. No edema. SKIN: Warm, dry, no rash. NEURO: No focal deficits. Alert and oriented x3. Cranial nerves II through XII grossly intact PSYCH: Normal mood and affect. Course Course Emergency Course: Patient was evaluated in the emergency department his findings were reviewed with the staff research associate at [facility] Dr. Cabral, who revealed the records from October when he was last in the hospital she notes that the patient missed his appointment 2 days ago she feels that it is safe to send him home given the findings noting that he had recent echo he has chronically elevated troponins and at this time can be followed up on an outpatient basis patient was made aware of this discussion and agrees to be compliant with his follow-ups and medications will be sent home treated for cellulitis of the abdomen provided with reasons to return he agrees with this plan ABCs and vital signs intact and stable he is nontoxic-appearing in no distress Consultations Consultation #1: Spoke with Dr. Garcia at [facility] who recommends that the patient can be sent home and that his findings are chronic and they will follow him acutely in the clinic and that he needs to make his appointments which she has had issues with in the past Date: 01/03/21 Time: 15:25 Vital Signs Vital signs: Vital
[2021-01-03 11:08] LABS: Alveolar/Arterial O2 Gradient 27.5 mmHg; Base Excess ABG -3.7 mEq/l (+/-2.0); Carboxyhemoglobin 1.2 % THb (0-2.0); Device ROOM AIR; Fractional Inspired Oxygen 21 %; HCO3 ABG 21.4 mEq/l (22.0-26.0); Methemoglobin ABG 0.3 %THb (0-1.5); Modified Allen's Test Pass; Oxygen Content ABG 14.8 %vol (16.0-22.0); Oxygen Saturation ABG 94.7 % (95.0-100.0); Oxyhemoglobin 93.3 % THb (90.0-100.0); PO2 ABG 75.5 mmHg (80.0-100.0); Reduced Hemoglobin 5.2 %THb (0-5.0); Site Drawn RIGHT RADIAL; Total Hemoglobin 11.2 g/dL (12.0-18.0); pH ABG 7.358 (7.350-7.450)
[2021-01-03 11:40] LABS: INR 2.6; Prothrombin Time 26.9 Seconds (11.1-14.7)
[2021-01-03 11:41] LABS: Partial Thromboplastin Time 43.5 SECONDS (22.3-36.8)
[2021-01-03 11:42] LABS: Add Urine Microscopic? YES; Appearance Urine Clear (Clear); Bilirubin Urine 2+ (Negative); Blood Urine Negative (Negative); Color Urine Amber (Yellow); Glucose Urine UA Negative (Negative); Ketones Urine Negative (Negative); Leukocyte Esterase Ur Negative LEU/UL (Negative); Mucus Urine Rare /lpf; Nitrate Urine Negative (Negative); Protein Urine Negative (Negative)
[2021-01-03 11:55] LABS: CRP 8.6 mg/dL (<1.0)
[2021-01-03 12:02] LABS: Ammonia 51 umol/L (9-30)
[2021-01-03 12:15] LABS: Lactic Acid Reflex 1.9 mmol/L (0.7-2.1)
[2021-01-03 12:47] LABS: Lipase 253 U/L (23-300)
[2021-01-03 12:50] LABS: NT Pro B Type Natriuretic Pept 253 pg/mL (5-100); Troponin I 0.212 ng/mL (0.000-0.034)
[2021-01-03] MEDS: LACTULOSE 20 GM/30 ML UDC PO (12:54)
[2021-01-03 13:52] LABS: Troponin I 0.187 ng/mL (0.000-0.034)
[2021-01-03 14:13] LABS: EDCOVIDSCREEN Negative (Negative)
== END 2021-01-03 15:58 | disposition home or self-care (01) ==
PROVIDERS: Emergency Medicine Emergency Medical Services; Emergency Provider Emergency Medicine
DX: L03.311 Cellulitis of abdominal wall (principal); R79.89 Other specified abnormal findings of blood chemistry; Z20.822 Contact with and (suspected) exposure to COVID-19; K74.60 Unspecified cirrhosis of liver; I11.0 Hypertensive heart disease with heart failure; I50.9 Heart failure, unspecified; J45.909 Unspecified asthma, uncomplicated; E66.01 Morbid (severe) obesity due to excess calories; Z68.44 Body mass index [BMI] 60.0-69.9, adult; K80.20 Calculus of gallbladder without cholecystitis without obstruction; K44.9 Diaphragmatic hernia without obstruction or gangrene; R18.8 Other ascites; K76.6 Portal hypertension; I51.7 Cardiomegaly
CPT/HCPCS: 36415; 36600; 51701; 71046; 71275; 74177; 80053; 81001; 82140; 82375; 82805; 83050; 83605; 83690; 83880; 84484; 85025; 85610; 85730; 86140; 87040; 87077; 87086; 87186; 87426; 93005; 99284; A9270; C9803; Q9967

== ENCOUNTER 2021-01-04 10:35 | Inpatient (IN) | payer SELFPAY ==
[2021-01-04] VITALS (9 sets, daily range): BP systolic 114–144; BP diastolic 54–97; PULSE 74–90; RESP 17–22; TEMP 36.3–37.1; O2SAT 97–99
--- NOTE | ~2021-01-04 | US_ITS ---
EXAMINATION: US right upper quadrant DATE: 01/06/2021 09:59 INDICATION: Hyperbilirubinemia. TECHNIQUE: Multiple grayscale and Doppler ultrasound images of the abdomen were obtained. COMPARISON: CT dated 01/03/2021 FINDINGS:The examination is limited by the patient's body habitus. Bowel gas obscures visualization of the pancreas. The liver is difficult to visualize but appears unremarkable. Normal hepatopetal gayle w in the main portal vein. The gallbladder is not visualized. The normal common bile duct measures 6 mm. There was no sonographic Valenzuela sign. IMPRESSION: 1. Grossly normal examination severely limited by body habitus. Reviewed, dictated and finalized at location A.
[2021-01-04 12:20] LABS: Basophils Percent Auto 0.8 % (0.2-1.2); Eosinophils Absolute Auto 0.1 K/mm3 (0-0.3); Eosinophils Percent Auto 2.6 % (0-4.4); Hematocrit 29.2 % (42.0-52.0); Hemoglobin 9.3 g/dL (14.0-18.0); Immature Granulocyte Absolute 0.04 K/mm3 (0.00-0.031); Immature Granulocyte Percent A 0.8 % (0-0.5); Immature Platelet Fraction Pct 10.8 % (0.9-11.2); Lymphocytes Absolute Auto 0.76 K/mm3 (0.9-3.2); Lymphocytes Percent Auto 15.1 % (18.3-44.2); Mean Corpuscular HGB Conc 31.8 g/dl (32-36); Mean Corpuscular Hemoglobin 28.2 pg (26-34); Mean Corpuscular Volume 88.5 fl (80-100); Mean Platelet Volume 13.9 fl (7.4-10.4); Monocytes Absolute Auto 0.7 K/mm3 (0.1-0.6); Monocytes Percent Auto 12.9 % (2.6-8.5); Neutrophils Absolute Auto 3.4 K/mm3 (1.3-6.7); Neutrophils Percent Auto 67.8 % (45.5-73.1); Platelet Count Result 32 k/mm3 (150-375); Red Cell Distribution Width 16.8 % (11.5-14.5)
[2021-01-04 12:28] LABS: INR 1.9; Prothrombin Time 21.7 Seconds (11.1-14.7)
[2021-01-04 12:30] LABS: Alanine Aminotransferase 50 U/L (4-50); Albumin Level 2.3 g/dL (3.5-5.1); Alkaline Phosphatase 89 U/L (38-126); Anion Gap 7 mmol/L (8-16); Aspartate Amino Transferase 113 U/L (17-59); Bilirubin,Total 10.6 mg/dL (0.2-1.3); Blood Urea Nitrogen 31 mg/dL (9-20); Calcium 7.5 mg/dL (8.4-10.2); Carbon Dioxide 21 mmol/L (22-30); Chloride 104 mmol/L (98-107); Estimated CRCL calculation 135 ml/min; Estimated Glomerular Filt Rate > 60; Glucose 99 mg/dL (65-110); Potassium 3.7 mmol/L (3.4-5.0); Sodium 132 mmol/L (137-145)
--- NOTE | 2021-01-04 14:12 | ED.GENADULT ---
HPI - General Adult General Chief complaint: Recheck/Abnormal Lab/Rx Stated complaint: abdnormal labs Time Seen by Provider: 01/04/21 11:29 Source: patient History of Present Illness HPI narrative: Patient is a 40 y/o male complaining of abnormal labs. He states that he was seen here yesterday and had blood culture draw which was positive preliminarily. He was contacted by Dr. Loyola to go back to ED for further evaluation. He has been having right sided abdominal pain for 4 days. He describes his pain as aching and rates it as 8/10. There is no known alleviating or exacerbating factor. He has no fever. He was diagnosed with Related Data Allergies Allergy/AdvReac Type Severity Reaction Status Date / Time amoxicillin Allergy Unknown Anaphylaxis Verified 01/04/21 13:58 Penicillins Allergy Unknown Anaphylactic Verified 01/04/21 13:58 Shock Review of Systems Constitutional: Constitutional: Denies chills, Denies fever(s), Denies headache(s) and Denies weakness Eyes: Eyes: Denies blurry vision ENT: Denies headache(s) and Denies neck pain Cardiovascular: Cardiovascular: Denies chest pain and Denies dyspnea Respiratory: Respiratory: Denies cough and Denies dyspnea Gastrointestinal: Gastrointestinal: Reports abdominal pain, Denies diarrhea, Denies nausea and Denies vomiting Genitourinary: Genitourinary: Denies hematuria and Denies dysuria Musculoskeletal: Musculoskeletal: Denies back pain and Denies neck pain Neurologic: Denies headache(s) and Denies weakness [facility] Past Medical History Medical History (Updated 01/05/21 @ 13:53 by Hernesto Mcdonald MD) Asthma Chronic anemia Chronic back pain Cirrhosis Hepatitis A Hypertension 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 Not currently working. Non-smoker. Former drinker, no alcohol in a couple of years. Denies illicit substance use. He designates his Ambika as his surrogate decision-maker and he wishes to be a full code. Exam Const: General: no acute distress and well developed Nutritional Appearance: obese Orientation/consciousness: oriented to person, oriented to place, oriented to time and patient oriented x3 HENMT: Head: normocephalic Ears: external ears normal General nose exam: Normal external nose present Eyes: General: appearance normal, both eyes and all related structures Conjunctivae: conjunctivae normal Neck: Neck: normal visual inspection and full ROM Chest: Chest palpation & inspection: normal inspection of the chest and no tenderness Resp: Effort & Inspection: normal respiratory effort Auscultation: clear to auscultation bilaterally Cardio: Rate: regular rate Rhythm: regular rhythm GI: GI Palp: No abdominal tenderness and Yes Soft to palpation Skin: General skin exam: turgor normal, erythema (right abdominal wall) and jaundice Neuro: General: oriented to person, oriented to place, oriented to time and patient oriented x3 Cognition (Neuro): normal cognition Extrem: General: normal to inspection, full ROM and no pedal edema Psych: Appearance: grossly normal Mental Status: mental status grossly normal Affect: normal affect Course Consultations Consultation #1: Discussed with Dr. Alvarez, who recommends consulting ticket printer. Discussed with Dr. Bowles (ticket printer), who states that patient does not need ICU ad
[2021-01-04 14:46] LABS: Lactic Acid Reflex 1.7 mmol/L (0.7-2.1)
[2021-01-04] MEDS: BELLADONNA ALK/PHENOB ELIX 10 ML, MAG HYDROX/ALUMINUM HYD/SIMETH 30 ML, LIDOCAINE HCL 2... PO (15:38)
[2021-01-04 16:18] LABS: Troponin I 0.111 ng/mL (0.000-0.034)
--- NOTE | 2021-01-04 16:21 | PM.IMHP ---
H&P: HPI History of Present Illness Date/Time: 01/04/21 16:21 [facility] Past Medical History Medical History (Updated 01/04/21 @ 00:00 by Kelsey Joseph) Asthma Chronic back pain Cirrhosis H/O: HTN (hypertension) Hepatitis A Morbid obesity Thrombocytopenia Surgical History Surgical History Surgical history unknown Family History Family History Mother Diabetes mellitus Atrial fibrillation Father Obstructive sleep apnea Congestive heart failure Chronic obstructive pulmonary disease Bronchitis Sibling Cirrhosis Scoliosis Social History Social History Smoking status: Never smoker Second hand tobacco smoke exposure: Yes Alcohol intake: former Substance use type: does not use Gender identity (if verbalized by the patient): Male Spiritual care concerns: No Meds Home Medications and Allergies Home Medications Medication Instructions Recorded Confirmed Type carvedilol 6.25 mg PO BID 30 Days #60 tablet 01/03/21 Rx cephalexin 500 mg PO Q8H 10 Days #30 tablet 01/03/21 Rx furosemide [Lasix] 40 mg PO DAILY 30 Days #30 tablet 01/03/21 Rx Allergies Allergy/AdvReac Type Severity Reaction Status Date / Time amoxicillin Allergy Unknown Anaphylaxis Verified 01/04/21 13:58 Penicillins Allergy Unknown Anaphylactic Verified 01/04/21 13:58 Shock Vital Signs Vital Signs - 24 hr 01/04/21 10:58 01/04/21 12:50 01/04/21 13:50 Temperature 98.4 F 97.4 F L Pulse Rate 90 82 80 Respiratory Rate 22 H 17 17 Blood Pressure 125/97 H 114/55 L 114/59 L Pulse Oximetry 97 99 98 01/04/21 15:56 Temperature Pulse Rate 83 Respiratory Rate 17 Blood Pressure 127/69 Pulse Oximetry 97 H&P: Results Labs Labs: Short CBC 01/04/21 Range/Units 11:51 WBC 5.0 (4.5-10.0) K/mm3 Hgb 9.3 L (14.0-18.0) g/dL Hct 29.2 L (42.0-52.0) % Plt Count 32 L (150-375) k/mm3 BMP 01/04/21 11:51 Sodium 132 L Potassium 3.7 Chloride 104 Carbon Dioxide 21 L BUN 31 H Creatinine 1.10 Glucose 99 Calcium 7.5 L Cardiac Enzymes 01/04/21 Range/Units 11:51 Troponin I 0.111 H* (0.000-0.034) ng/mL Liver Function 01/04/21 Range/Units 11:51 Total Bilirubin 10.6 H (0.2-1.3) mg/dL AST 113 H (17-59) U/L ALT 50 (4-50) U/L Alkaline Phosphatase 89 (38-126) U/L Albumin 2.3 L (3.5-5.1) g/dL Assessment and Plan Assessment and plan (1) Cirrhosis: Code(s): K74.60 - Unspecified cirrhosis of liver Status: Acute (2) Hypertension: Code(s): I10 - Essential (primary) hypertension Status: Acute (3) GENA on CPAP: Code(s): G47.33 - Obstructive sleep apnea (adult) (pediatric); Z99.89 - Dependence on other enabling machines and devices Status: Acute (4) Pancytopenia: Code(s): D61.818 - Other pancytopenia Status: Acute (5) Asthma: Qualifiers: Asthma severity: unspecified severity Asthma persistence: unspecified Asthma complication type: unspecified Qualified Code(s): J45.909 - Unspecified asthma, uncomplicated Code(s): J45.909 - Unspecified asthma, uncomplicated Status: Chronic (6) Morbid obesity: Code(s): E66.01 - Morbid (severe) obesity due to excess calories Status: Chronic (7) Anasarca: Code(s): R60.1 - Generalized edema Status: Acute (8) Cellulitis: Code(s): L03.90 - Cellulitis, unspecified Status: Acute (9) Localized swelling of right lower extremity: Code(s): R22.41 - Localized swelling, mass and lump, right lower limb Status: Acute (10) Elevated troponin: Code(s): R79.89 - Other specified abnormal findings of blood chemistry Status: Acute (11) Thrombocytopenia: Code(s): D69.6 - Thrombocytopenia, unspecified Statu
[2021-01-04] MEDS: SODIUM CHLORIDE 0.9% IV 1,000 ML 50 ML IV CONT (17:46)
--- NOTE | 2021-01-04 17:52 | ADMGEN ---
This patient, Vignesh Shaffer, was admitted to IMU Room 201-01. Patient/family oriented to hospital policies and general routines including ID bracelet, bed and alarms, visiting hours, pain management, procedures, bathroom and other care routines, personal items, smoking policy, room service/diet, and visiting hours. Information on how to activate the Rapid Response Team has been discussed. Patient/Family are encouraged to report perceived risks to care and to ask questions if they do not understand what they are told or what they should do.
[2021-01-04 18:19] LABS: Troponin I 0.103 ng/mL (0.000-0.034)
--- NOTE | 2021-01-04 20:30 | PM.IMHP ---
H&P: HPI History of Present Illness Date/Time: 01/04/21 20:00 Chief Complaint: Positive blood cultures. Narrative: This is a 40-year-old male with multiple medical problems including cirrhosis presumably due to MUIR, anemia, hypertension, asthma, sleep apnea, and morbid obesity who presented to the emergency department earlier today via private vehicle from home after he received a phone call that blood cultures drawn yesterday came back positive. He was seen in the emergency department yesterday for evaluation of right sided pain with redness and warmth along the right side of the abdomen. A CT scan of the chest, abdomen, and pelvis showed cirrhosis with prominent splenomegaly with a small amount of perihepatic ascites and cholelithiasis. It was negative for PE and he was diagnosed with abdominal wall cellulitis and discharged home with cephalexin. He had multiple lab abnormalities prompting a call to ROD Delong at [facility], who states he should follow up with them after discharge. In any event, he received a call today that one of his blood cultures came back positive for gram positive cocci in chains from the aerobic bottle only and he is being admitted in this setting. At the time of my evaluation, he is resting comfortably and has no complaints. He does indicate that he has put on some weight in the last week or so, mainly around his abdomen, despite being compliant with his diuretics. He has had some chills but no fever or sweats. No recent cold or flu symptoms. He denies chest pain shortness of breath. No cough. No diarrhea or dysuria. Review of Systems Review of Systems: 12 systems were reviewed with pertinent positives and negatives as per HPI. No fever. He denies headache. Reports easy bruising and has quite a few bruises on his upper extremities from recent ER visit as above. No epistaxis, gingival bleeding, melena, hematochezia, or hematuria. Compliant with CPAP. 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 Not currently working. Non-smoker. Former drinker, no alcohol in a couple of years. Denies illicit substance use. He designates his Ambika as his surrogate decision-maker and he wishes to be a full code. Meds Home Medications and Allergies Home Medications Medication Instructions Recorded Confirmed Type carvedilol 6.25 mg PO BID 30 Days #60 tablet 01/03/21 01/04/21 Rx cephalexin 500 mg PO Q8H 10 Days #30 tablet 01/03/21 01/04/21 Rx furosemide [Lasix] 40 mg PO DAILY 30 Days #30 tablet 01/03/21 01/04/21 Rx Allergies Allergy/AdvReac Type Severity Reaction Status Date / Time amoxicillin Allergy Unknown Anaphylaxis Verified 01/04/21 13:58 Penicillins Allergy Unknown Anaphylactic Verified 01/04/21 13:58 Shock Vital Signs Vital Signs - 24 hr 01/04/21 10:58 01/04/21 12:50 01/04/21 13:50 Temperature 98.4 F 97.4 F L Pulse Rate 90 82 80 Respiratory Rate 22 H 17 17 Blood Pressure 125/97 H 114/55 L 114/59 L Pulse Oximetry 97 99 98 01/04/21 15:56 01/04/21 16:46 01/04/21 16:50 Temperature 98.8 F Pulse Rate 83 74 85 Re
[2021-01-04] MEDS: MORPHINE SULFATE (*CRX) 2 MG/ML INJ IV PUSH (20:51)
[2021-01-05] VITALS (19 sets, daily range): BP systolic 100–142; BP diastolic 42–86; PULSE 80–95; RESP 18–23; TEMP 35.7–37.2; O2SAT 94–100; BMI 80.6
[2021-01-05] MEDS: HYDROcodone/acetaminophen (*CRX) 5-325 MG TABLET 1 TAB PO ×2 (02:12→08:47)
[2021-01-05 05:37] LABS: Hematocrit 30.5 % (42.0-52.0); Hemoglobin 9.8 g/dL (14.0-18.0); Immature Platelet Fraction Pct 12.9 % (0.9-11.2); Mean Corpuscular HGB Conc 32.1 g/dl (32-36); Mean Corpuscular Hemoglobin 28.7 pg (26-34); Mean Corpuscular Volume 89.4 fl (80-100); Mean Platelet Volume 12.3 fl (7.4-10.4); Platelet Count Result 30 k/mm3 (150-375); Red Blood Count 3.41 M/mm3 (4.6-6.20); Red Cell Distribution Width 16.7 % (11.5-14.5); White Blood Count 6.3 K/mm3 (4.5-10.0)
[2021-01-05 05:50] LABS: Alanine Aminotransferase 47 U/L (4-50); Albumin Level 2.4 g/dL (3.5-5.1); Alkaline Phosphatase 112 U/L (38-126); Anion Gap 7 mmol/L (8-16); Aspartate Amino Transferase 99 U/L (17-59); Bilirubin,Total 14.4 mg/dL (0.2-1.3); Blood Urea Nitrogen 36 mg/dL (9-20); Calcium 7.3 mg/dL (8.4-10.2); Carbon Dioxide 19 mmol/L (22-30); Chloride 105 mmol/L (98-107); Estimated CRCL calculation 115 ml/min; Estimated Glomerular Filt Rate > 60; Glucose 94 mg/dL (65-110); Magnesium 1.6 mg/dL (1.6-2.3); Potassium 3.6 mmol/L (3.4-5.0); Sodium 131 mmol/L (137-145)
[2021-01-05 06:04] LABS: CRP 17.7 mg/dL (<1.0)
[2021-01-05] MEDS: FUROSEMIDE INJ 40 MG/4 ML VIAL IV PUSH ×2 (08:43→18:02)
[2021-01-05] MEDS: ONDANSETRON INJ 4 MG/2 ML VIAL IV PUSH ×2 (13:31→19:55)
--- NOTE | 2021-01-05 13:41 | PM.IMPN ---
Progress Note: A&P Assessment and Plan (1) Cellulitis of right abdominal wall: Code(s): L03.311 - Cellulitis of abdominal wall Status: Acute Assessment and Plan: He has been started on vancomycin and levofloxacin per antibiotic stewardship recommendation. This is most certainly exacerbated by the marked edema in the panniculus. Lasix IV ordered for today to help with the abd wall edema. Will stop Levaquin. Discuss with patient about allergy symptoms and to see if he tolerated the cephalexin. Reluctant to trial him on cephalosporins at this time so continue Vanco. (2) Bacteremia: Code(s): R78.81 - Bacteremia Status: Acute Assessment and Plan: BCx (01/03) drawn in the first ED visit are (1of2) positive for Group B Strept. Repeat BCx (01/04) NGTD. [place] related to the cellulitis. He has PCN allergy that causes anaphylaxis. As above. (3) Elevated troponin: Code(s): R79.89 - Other specified abnormal findings of blood chemistry Status: Acute Assessment and Plan: Trop was 0.212 in the first ED visit. This was discussed with the architect in training who felt this was not clinically significant. Unclear why these were drawn as he was not having any chest pain. Troponin has been trending down since admission. Also apperas Trop always elevated. EKG normal. No ASA given the low plt, normal EKG and no CP. (4) Thrombocytopenia: Code(s): D69.6 - Thrombocytopenia, unspecified Status: Acute Assessment and Plan: Plt count was 56 in September but now into the 30's. Overall, this is a chronic finding for this patient, presumably secondary to cirrhosis and prominent splenomegaly. Follow (5) Chronic anemia: Code(s): D64.9 - Anemia, unspecified Status: Acute Assessment and Plan: Hgb normally in the 11 range but now in the 9-10 range this admission. No melena or hematochezia but high risk of bleeding. Check B12 levels and iron studies but these may be askew from the liver disease. 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 AST elevated at 170 but trending down. ALT and AP normal now. TBili was actually normal in September but now at 11-14 range. Hgb noted but feel hemolysis less likely. INR 1.9 with Albumin 2.4 on admission. He was informed of these findings. He was encouraged to follow-up as soon as possible with his architect in training on discharge. Will fractionate the bili and check haptoglobin and LDH (7) Obstructive sleep apnea on CPAP: Code(s): G47.33 - Obstructive sleep apnea (adult) (pediatric); Z99.89 - Dependence on other enabling machines and devices Status: Acute Assessment and Plan: Stable. CPAP made available. Continue to use at night and with naps. (8) Morbid obesity: Code(s): E66.01 - Morbid (severe) obesity due to excess calories Status: Chronic Assessment and Plan: BMI 74. Weight loss is imperative in this gentleman given comorbidities. (9) Hypertension: Code(s): I10 - Essential (primary) hypertension Status: Acute Assessment and Plan: Patient's blood pressure was reviewed on 01/05. Blood pressure remains well controlled. Will continue to monitor. Appears Coreg and lasix just started from ED note 01/03. (10) DVT prophylaxis: Code(s): Z29.9 - Encounter for prophylactic measures, unspecified Status: Acute Assessment and Plan: SCDs Subjective Date/time seen: 01/05/21 13:41 Interval history: 40yo male with cirrhosis and morbid obesity here for right sided abdominal pain. He was seen in the ED on 01/03 and had BCx drawn. He was found to have abd wall cellulitis and elevated Trop. The ED doctor spoke wi
[2021-01-06] VITALS (15 sets, daily range): BP systolic 97–146; BP diastolic 43–68; PULSE 82–105; RESP 16–20; TEMP 36.2–37.1; O2SAT 96–99
[2021-01-06 02:00] LABS: Vancomycin Trough 15.5 ug/mL (10.0-20.0)
[2021-01-06 06:09] LABS: Hematocrit 29.3 % (42.0-52.0); Hemoglobin 9.7 g/dL (14.0-18.0); Mean Corpuscular HGB Conc 33.1 g/dl (32-36); Mean Corpuscular Hemoglobin 28.8 pg (26-34); Mean Corpuscular Volume 86.9 fl (80-100); Mean Platelet Volume 12.4 fl (7.4-10.4); Platelet Count Result 34 k/mm3 (150-375); Red Blood Count 3.37 M/mm3 (4.6-6.20); Red Cell Distribution Width 16.3 % (11.5-14.5); White Blood Count 7.6 K/mm3 (4.5-10.0)
[2021-01-06 06:21] LABS: Alanine Aminotransferase 41 U/L (4-50); Albumin Level 2.3 g/dL (3.5-5.1); Alkaline Phosphatase 130 U/L (38-126); Anion Gap 7 mmol/L (8-16); Aspartate Amino Transferase 80 U/L (17-59); Bilirubin Indirect 2.1 mg/dL (0-1.1); Bilirubin,Total 14.7 mg/dL (0.2-1.3); Blood Urea Nitrogen 37 mg/dL (9-20); Calcium 7.3 mg/dL (8.4-10.2); Carbon Dioxide 22 mmol/L (22-30); Chloride 101 mmol/L (98-107); Estimated CRCL calculation 102 ml/min; Estimated Glomerular Filt Rate 51; Glucose 83 mg/dL (65-110); Lactate Dehydrogenase 873 U/L (313-618); Magnesium 1.7 mg/dL (1.6-2.3); Phosphorus 2.2 mg/dL (2.5-4.5); Potassium 3.7 mmol/L (3.4-5.0); Sodium 130 mmol/L (137-145)
[2021-01-06 06:33] LABS: CRP 17.9 mg/dL (<1.0)
[2021-01-06 06:45] LABS: Iron 114 ug/dL (49-181)
[2021-01-06 06:56] LABS: Percent Iron Saturation 44 % (20-50)
[2021-01-06 07:20] LABS: Folic Acid 6.6 ng/mL (2.76->20); Vitamin B12 > 1000.0 pg/mL (239-931)
[2021-01-06 07:23] LABS: Band Neutrophils Percent 7 % (0-6); Eosinophils Percent Manual 4 % (0-4); Lymphocytes Absolute Manual 0.91 K/mm3 (1.1-4.5); Monocytes Percent Manual 8 % (3-9); Neutrophils Absolute Manual 5.77 K/mm3 (1.3-6.7); Neutrophils Percent Manual 69 % (46-73); Nucleated Red Blood Cells 1 %; Total Cells Counted 100
[2021-01-06 07:25] LABS: Hypochromasia 2+ (NORMAL); Platelet Estimate Decreased (Adequate)
[2021-01-06 07:53] LABS: Free T4 Free Thyroxine Reflex 1.09 ng/dL (0.78-2.19)
[2021-01-06 09:07] LABS: Total Triiodothyronine (T3) 0.56 NG/ML (0.97-1.69)
--- NOTE | 2021-01-06 10:41 | PM.IMPN ---
Progress Note: A&P Assessment and Plan (1) Cellulitis of right abdominal wall: Code(s): L03.311 - Cellulitis of abdominal wall Status: Acute Assessment and Plan: He has been started on vancomycin and levofloxacin per antibiotic stewardship recommendation. This is related to the excoriations from scratches and exacerbated by the marked edema in the panniculus. Lasix IV ordered x2 doses but Cr up now so will not continue. Levaquin has been stopped. Will change vanco over to Ancef. Monitor closely. (2) Bacteremia: Code(s): R78.81 - Bacteremia Status: Acute Assessment and Plan: BCx (01/03) drawn in the first ED visit are (1of2) positive for Group B Strept. Repeat BCx (01/04) NGTD. [place] related to the cellulitis. He has PCN allergy that causes hives and through swelling. Will change Vanco over to Ancef for now since there is no cross reactivity with Ancef and PCN. Monitor for delayed reaction. As above. (3) Elevated troponin: Code(s): R79.89 - Other specified abnormal findings of blood chemistry Status: Acute Assessment and Plan: Trop was 0.212 in the first ED visit. This was discussed with the hand i thermal cutter who felt this was not clinically significant. Unclear why these were drawn as he was not having any chest pain. Troponin has been trending down since admission. Also apperas Trop always elevated. EKG normal. No ASA given the low plt, normal EKG and no CP. (4) Thrombocytopenia: Code(s): D69.6 - Thrombocytopenia, unspecified Status: Acute Assessment and Plan: Plt count was 56 in September but now into the 30's. Overall, this is a chronic finding for this patient, presumably secondary to cirrhosis and prominent splenomegaly. Follow (5) Chronic anemia: Code(s): D64.9 - Anemia, unspecified Status: Acute Assessment and Plan: Hgb normally in the 11 range but now in the 9-10 range this admission and stable. No melena or hematochezia but high risk of bleeding. B12 levels and iron studies noted. Follow HH. 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 AST elevated at 170 but trending down. ALT normal now. INR 1.9 with Albumin 2.4 on admission. TBili was actually normal in September but now at 11-14 range and mostly Direct Bili. Hgb dropped to 9 range but stable. LDH mildly elevated felt related to his cirrhosis. He was encouraged to follow-up as soon as possible with his hand i thermal cutter on discharge. Check RUQ RUQ US was grossly normal but limited due to his size. Check CALVIN. GI consult (7) Obstructive sleep apnea on CPAP: Code(s): G47.33 - Obstructive sleep apnea (adult) (pediatric); Z99.89 - Dependence on other enabling machines and devices Status: Acute Assessment and Plan: Stable. CPAP made available. Continue to use at night and with naps. (8) Morbid obesity: Code(s): E66.01 - Morbid (severe) obesity due to excess calories Status: Chronic Assessment and Plan: BMI 74. Weight loss is imperative in this gentleman given comorbidities. (9) Hypertension: Code(s): I10 - Essential (primary) hypertension Status: Acute Assessment and Plan: Patient's blood pressure was reviewed on 01/06. Blood pressure remains well controlled off medications. Will continue to monitor. Appears Coreg and lasix just started from ED note 01/03. (10) DVT prophylaxis: Code(s): Z29.9 - Encounter for prophylactic measures, unspecified Status: Acute Assessment and Plan: SCDs Subjective Date/time seen: 01/06/21 10:41 Interval history: 40yo male with cirrhosis and morbid obesity here for right sided abdominal pain. He
[2021-01-06] MEDS: POTASSIUM/PHOSPHORUS/SODIUM 1.5 GM PACKET 1 PACKET PO (10:48)
[2021-01-06] MEDS: HYDROcodone/acetaminophen (*CRX) 5-325 MG TABLET 1 TAB PO ×2 (13:04→17:02)
--- NOTE | 2021-01-06 15:49 | WPDGICN ---
Assessment and Plan Assessment and plan (1) Bacteremia: Code(s): R78.81 - Bacteremia Status: Acute Assessment and Plan: Group B Strept, on iv antibiotics- source of infection is cellulitis in abdominal wall (2) Cellulitis of right abdominal wall: Code(s): L03.311 - Cellulitis of abdominal wall Status: Acute Assessment and Plan: on antibiotics, he had similar presentation more than a year ago (3) Sepsis: Code(s): A41.9 - Sepsis, unspecified organism Status: Acute (4) Liver cirrhosis secondary to [place]: Code(s): K75.81 - Nonalcoholic steatohepatitis ([place]); K74.60 - Unspecified cirrhosis of liver Status: Acute Assessment and Plan: [place] most likely cause of cirrhosis, now with jaundice probably decompensated from sepsis will get labs and inr tomorrow to calculate MELD score, he will need to see his four slide operator at [facility] (5) Jaundice: Code(s): R17 - Unspecified jaundice Status: Acute Assessment and Plan: continue to monitor, recent CT scan reviewed (6) Thrombocytopenia: Code(s): D69.6 - Thrombocytopenia, unspecified Status: Acute Assessment and Plan: chronic, from cirrhosis (7) Chronic anemia: Code(s): D64.9 - Anemia, unspecified Status: Acute (8) Hepatitis A: Code(s): B15.9 - Hepatitis A without hepatic coma Status: Acute Assessment and Plan: 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 He also has history of hypertension, GENA on CPAP, asthma, chronic back pain. He has seen four slide operator at [facility] but does not remember name, he says that is on water pills. He came here after recent blood cultures drawn day before of admission came back positive. He was seen in the emergency department day before his admission for evaluation of worsening pain with redness and warmth along the right side of the abdomen. A CT scan of the chest, abdomen, and pelvis reviewed and showed cirrhosis with prominent splenomegaly with a small amount of perihepatic ascites and cholelithiasis. It was negative for PE and he was diagnosed with abdominal wall cellulitis and discharged home with cephalexin. He is now on iv antibiotics and better. Also noted abnormal liver enzymes with bili 14. Review of Systems Constitutional: Constitutional: Reports chills and Reports fatigue Eyes: Eyes: Denies blurry vision ENT: Reports Normal hearing present Cardiovascular: Cardiovascular: Reports leg edema Respiratory: Respiratory: Denies cough Gastrointestinal: Gastrointestinal: Reports abdominal pain Genitourinary: Genitourinary: Denies dysuria Musculoskeletal: Musculoskeletal: Reports myalgias Integumentary/Breasts: Skin/Breast: Reports rash (abdomen) Neurologic: Denies headache(s) Psychiatric: Psychiatric: Denies behavioral changes [facility] Past Medical History Medical History (Updated 01/06/21 @ 15:58 by Ian Figueroa MD) Asthma Chronic anemia Chronic back pain Cirrhosis Hepatitis A Hypertension Jaundice Liver cirrhosis secondary to [place] Morbid obesity Obstructive sleep apnea on CPAP Sepsis Thrombocytopenia Surgical History Surgical History (Updated 01/04/21 @ 23:30 by Melodie Cruz PA-C) History of tonsillectomy Family History Family History Mother Diabetes mellitus Atrial fibrillation Father Obstructive sleep apnea Congestive heart failure Chronic obstructive pulmonary disease Bronchitis Sibli
[2021-01-07] VITALS (11 sets, daily range): BP systolic 110–168; BP diastolic 39–76; PULSE 84–91; RESP 17–24; TEMP 36.2–37.1; O2SAT 94–98
[2021-01-07] MEDS: HYDROcodone/acetaminophen (*CRX) 5-325 MG TABLET 1 TAB PO ×3 (00:49→22:08)
[2021-01-07 09:11] LABS: Hematocrit 30.5 % (42.0-52.0); Hemoglobin 10.1 g/dL (14.0-18.0); Immature Platelet Fraction Pct 13.2 % (0.9-11.2); Mean Corpuscular HGB Conc 33.1 g/dl (32-36); Mean Corpuscular Hemoglobin 28.4 pg (26-34); Mean Corpuscular Volume 85.7 fl (80-100); Mean Platelet Volume 11.5 fl (7.4-10.4); Platelet Count Result 42 k/mm3 (150-375); Red Blood Count 3.56 M/mm3 (4.6-6.20); Red Cell Distribution Width 16.4 % (11.5-14.5); White Blood Count 12.1 K/mm3 (4.5-10.0)
[2021-01-07 09:20] LABS: Alanine Aminotransferase 42 U/L (4-50); Albumin Level 2.4 g/dL (3.5-5.1); Alkaline Phosphatase 168 U/L (38-126); Anion Gap 6 mmol/L (8-16); Aspartate Amino Transferase 88 U/L (17-59); Bilirubin Direct 9.2 mg/dL (0-0.3); Blood Urea Nitrogen 25 mg/dL (9-20); Calcium 7.3 mg/dL (8.4-10.2); Carbon Dioxide 23 mmol/L (22-30); Chloride 102 mmol/L (98-107); Estimated CRCL calculation 137 ml/min; Estimated Glomerular Filt Rate > 60; Glucose 116 mg/dL (65-110); Potassium 3.4 mmol/L (3.4-5.0); Sodium 131 mmol/L (137-145)
[2021-01-07 09:30] LABS: CRP 17.7 mg/dL (<1.0); INR 1.6; Prothrombin Time 18.4 Seconds (11.1-14.7)
[2021-01-07 10:02] LABS: Band Neutrophils Percent 6 % (0-6); Eosinophils Absolute Manual 0.36 K/mm3 (0.02-0.5); Eosinophils Percent Manual 3 % (0-4); Hypochromasia 1+ (NORMAL); Lymphocytes Absolute Manual 0.84 K/mm3 (1.1-4.5); Monocytes Absolute Manual 1.69 K/mm3 (0.1-0.90); Monocytes Percent Manual 14 % (3-9); Neutrophils Absolute Manual 9.19 K/mm3 (1.3-6.7); Neutrophils Percent Manual 70 % (46-73); Platelet Estimate Decreased (Adequate); Total Cells Counted 100
--- NOTE | 2021-01-07 11:26 | PM.IMPN ---
Progress Note: A&P Assessment and Plan (1) Cellulitis of right abdominal wall: Code(s): L03.311 - Cellulitis of abdominal wall Status: Acute Assessment and Plan: The cellulitis is related to the excoriations from scratches and exacerbated by the marked edema in the panniculus. He was started on vancomycin and levofloxacin per antibiotic stewardship recommendations. Lasix IV ordered x2 doses but Cr increased. He now has serous drainage from small wounds. BCx from first ED visit growing Group B Strept. Levaquin and vanco changed to Ancef and he is toelrating this well. Monitor closely. Resume lasix for a slower diuresis. Try abd binder if able. (2) Bacteremia: Code(s): R78.81 - Bacteremia Status: Acute Assessment and Plan: BCx (01/03) drawn in the first ED visit are (1of2) positive for Group B Strept. Repeat BCx (01/04) NGTD. [place] related to the cellulitis. He has PCN allergy that causes hives and throat swelling. He did take the cephalexin priro to admission without symptoms. We changed from Vanco over to Ancef and he appears to be tolerating this well. Change to oral when he is close to discharge. Monitor for delayed reaction. As above. (3) Elevated troponin: Code(s): R79.89 - Other specified abnormal findings of blood chemistry Status: Acute Assessment and Plan: Trop was 0.212 in the first ED visit. This was discussed with the alarm signaler who felt this was not clinically significant. Unclear why these were drawn as he was not having any chest pain. Troponin has been trending down since admission. Also apperas Trop always elevated. EKG normal. No ASA given the low plt, normal EKG and no CP. (4) Thrombocytopenia: Code(s): D69.6 - Thrombocytopenia, unspecified Status: Acute Assessment and Plan: Plt count was 56K in September but dropped into the 30K's. Overall, this is a chronic finding for this patient, presumably secondary to cirrhosis and prominent splenomegaly. Repeat plt count better at 42K. Follow (5) Chronic anemia: Code(s): D64.9 - Anemia, unspecified Status: Acute Assessment and Plan: Hgb normally in the 11 range but now in the 9-10 range this admission and stable. No melena or hematochezia but high risk of bleeding. B12 levels and iron studies noted. Follow HH. 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 AST elevated at 170 but trended down. ALT normal now. INR 1.9 with Albumin 2.4 on admission. TBili was actually normal in September but now at 11-15 range and mostly Direct Bili. RUQ US was grossly normal but limited due to his size. Hemolysis unlikely. [place] elevated Bili from his bacteremia. Appreciate GI input. Patient does have a hx of HepA last year. Serologies being repeated. (7) Obstructive sleep apnea on CPAP: Code(s): G47.33 - Obstructive sleep apnea (adult) (pediatric); Z99.89 - Dependence on other enabling machines and devices Status: Acute Assessment and Plan: Stable. CPAP made available and patient using intermitently. Continue to use at night and with naps. (8) Morbid obesity: Code(s): E66.01 - Morbid (severe) obesity due to excess calories Status: Chronic Assessment and Plan: BMI 74. Weight loss is imperative in this gentleman contributing to his comorbidities. (9) Hypertension: Code(s): I10 - Essential (primary) hypertension Status: Acute Assessment and Plan: Patient's blood pressure was reviewed on 01/07. Blood pressure remains well controlled off medications. Will continue to monitor. Appears Coreg and lasix just started from ED note 01/03. (10) DVT prophylaxis: Code(s
[2021-01-07] MEDS: ONDANSETRON INJ 4 MG/2 ML VIAL IV PUSH ×2 (12:10→18:52)
[2021-01-07 12:21] LABS: HAV RESULT Negative (Negative)
[2021-01-07] MEDS: FUROSEMIDE INJ 40 MG/4 ML VIAL 20 MG IV PUSH ×2 (12:50→21:59)
--- NOTE | 2021-01-07 16:07 | WPDGIPROGNO ---
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 (4) Bacteremia: Code(s): R78.81 - Bacteremia Status: Acute (5) Thrombocytopenia: Code(s): D69.6 - Thrombocytopenia, unspecified Status: Acute Assessment and Plan: chronic, unchanged (6) Jaundice: Code(s): R17 - Unspecified jaundice Status: Acute Assessment and Plan: HAV negative (he had acute HAV last year) worsening liver numbers due to septicemia/cellulitis (7) Obstructive sleep apnea on CPAP: Code(s): G47.33 - Obstructive sleep apnea (adult) (pediatric); Z99.89 - Dependence on other enabling machines and devices Status: Acute Assessment and Plan: stable (8) Hypertension: Code(s): I10 - Essential (primary) hypertension Status: Acute (9) Chronic anemia: Code(s): D64.9 - Anemia, unspecified Status: Acute (10) Morbid obesity: Code(s): E66.01 - Morbid (severe) obesity due to excess calories Status: Chronic Subjective Date/time seen: 01/07/21 16:07 Interval history: less abdominal pain, now he is using his bipap Review of Systems Review of Systems: All systems reviewed & are unremarkable except as noted in HPI and below Exam Const: Other: morbid obese, using bipap HENMT: General nose exam: Normal nares present Eyes: Sclera: scleral abnormality Neck: Neck: supple Resp: Auscultation: clear to auscultation bilaterally Cardio: Rate: regular rate GI: Auscultation: normal bowel sounds Other: morbid obese, Erythematous patch noted right side of the abdomen, warm to touch. Skin: Rashes: rashes noted Neuro: Speech: normal speech Motor exam (neuro): Normal motor muscle tone present throughout Extrem: General: pedal edema Psych: Mental Status: mental status grossly normal Objective Data Vital Signs Vital Signs: Vital Signs - 24 hr 01/06/21 18:00 01/06/21 20:00 01/06/21 21:55 Temperature 97.9 F Pulse Rate 87 88 84 Respiratory Rate 20 Blood Pressure 122/56 L Pulse Oximetry 97 01/06/21 22:55 01/06/21 23:33 01/07/21 00:00 Temperature 97.6 F Pulse Rate 86 87 87 Respiratory Rate 20 Blood Pressure 113/43 L Pulse Oximetry 97 98 01/07/21 02:00 01/07/21 04:00 01/07/21 05:59 Temperature 97.3 F L Pulse Rate 85 85 86 Respiratory Rate 17 Blood Pressure 150/76 H Pulse Oximetry 97 01/07/21 08:00 01/07/21 10:00 01/07/21 11:56 Temperature 98.4 F 98.5 F Pulse Rate 88 86 91 Respiratory Rate 18 24 H Blood Pressure 127/56 L 168/72 H Pulse Oximetry 94 98 Intake/Output Intake/Output: Intake & Output 01/04/21 01/05/21 01/06/21 01/07/21 23:59 23:59 23:59 23:59 Intake Total 650 2440 1400 490 Output Total 950 500 Balance 650 1490 900 490 Meds/Results Medications: Active Medications Generic Name Dose Route Start Last Admin Trade Name Freq PRN Reason Stop Dose Admin Hydrocodone Bitart/Acetaminophen 1 tab 01/04/21 16:07 01/07/21 12:01 Hydrocodone/Acetaminophen (*Crx) 5-325 Mg Tablet PO 1 tab Q4H PRN Administration Moderate Pain (4-6) Al Hydrox/Mg Hydrox/Simethicone 30 ml 01/04/21 16:07 Mag Hydrox/Al Hydrox/Simeth 30 Ml Udc PO QID PRN Dyspepsia Bisacodyl 5 mg 01/04/21 16:07 Bisacodyl 5 Mg Tablet Ec PO DAILY PRN Constipation Furosemide 20 mg 01/07/21
--- NOTE | 2021-01-07 20:52 | PC.NURSE ---
This patient, Vignesh Shaffer, was transferred to [facility] on 01/07/21 at 2035. Personal belongings sent with patient. Report given to Estelita MARLOW. Appropriate documentation sent with patient.
[2021-01-08] MEDS: FUROSEMIDE INJ 40 MG/4 ML VIAL 20 MG IV PUSH ×3 (03:58→20:56)
[2021-01-08 05:49] LABS: Hematocrit 31.7 % (42.0-52.0); Hemoglobin 10.2 g/dL (14.0-18.0); Immature Platelet Fraction Pct 10.3 % (0.9-11.2); Mean Corpuscular HGB Conc 32.2 g/dl (32-36); Mean Corpuscular Hemoglobin 28.4 pg (26-34); Mean Corpuscular Volume 88.3 fl (80-100); Mean Platelet Volume 11.5 fl (7.4-10.4); Platelet Count Result 52 k/mm3 (150-375); Red Blood Count 3.59 M/mm3 (4.6-6.20); Red Cell Distribution Width 17.1 % (11.5-14.5); White Blood Count 14.6 K/mm3 (4.5-10.0)
[2021-01-08 05:59] LABS: Alanine Aminotransferase 40 U/L (4-50); Albumin Level 2.4 g/dL (3.5-5.1); Alkaline Phosphatase 180 U/L (38-126); Anion Gap 6 mmol/L (8-16); Aspartate Amino Transferase 94 U/L (17-59); Bilirubin,Total 14.2 mg/dL (0.2-1.3); Blood Urea Nitrogen 20 mg/dL (9-20); Calcium 7.1 mg/dL (8.4-10.2); Carbon Dioxide 23 mmol/L (22-30); Chloride 101 mmol/L (98-107); Estimated CRCL calculation 137 ml/min; Estimated Glomerular Filt Rate > 60; Glucose 124 mg/dL (65-110); Magnesium 1.6 mg/dL (1.6-2.3); Phosphorus 2.3 mg/dL (2.5-4.5); Potassium 3.3 mmol/L (3.4-5.0); Sodium 130 mmol/L (137-145)
[2021-01-08 07:32] LABS: Band Neutrophils Percent 12 % (0-6); Lymphocytes Absolute Manual 1.02 K/mm3 (1.1-4.5); Monocytes Absolute Manual 0.73 K/mm3 (0.1-0.90); Monocytes Percent Manual 5 % (3-9); Neutrophils Absolute Manual 12.84 K/mm3 (1.3-6.7); Neutrophils Percent Manual 76 % (46-73); Platelet Estimate Decreased (Adequate); Total Cells Counted 100
[2021-01-08 07:33] LABS: Anisocytosis 1+ (NORMAL); Polychromasia 1+ (NORMAL)
[2021-01-08 08:00] VITALS: BP 125/53; PULSE 89; RESP 20; TEMP 36.3; O2SAT 94
[2021-01-08] MEDS: POTASSIUM CHLORIDE 20 MEQ TABLET PO (08:50)
[2021-01-08] MEDS: MAGNESIUM SULF 1 GM/D5W 100 ML 1 GM/100 ML BAG IVPB (08:50)
[2021-01-08] MEDS: ONDANSETRON INJ 4 MG/2 ML VIAL IV PUSH (10:39)
--- NOTE | 2021-01-08 10:59 | PM.IMPN ---
Progress Note: A&P Assessment and Plan (1) Cellulitis of right abdominal wall: Code(s): L03.311 - Cellulitis of abdominal wall Status: Acute Assessment and Plan: The cellulitis is related to the excoriations from scratches and exacerbated by the marked edema in the panniculus. He was started on vancomycin and levofloxacin per antibiotic stewardship recommendations. Lasix IV ordered x2 doses but Cr increased. He now has serous drainage from small wounds. BCx from first ED visit growing Group B Strept. Levaquin and vanco changed to Ancef and he is tolerating this well. No fevers but WBC climbing. No diarrhea to suggest CDiff. Monitor closely. We resumed lasix IV for a slower diuresis and he is tolerating this well. (2) Bacteremia: Code(s): R78.81 - Bacteremia Status: Acute Assessment and Plan: BCx (01/03) drawn in the first ED visit are (1of2) positive for Group B Strept. He did not meet sepsis criteria. Repeat BCx (01/04) NGTD. [place] related to the cellulitis. He has PCN allergy that causes hives and throat swelling. He did take the cephalexin prior to admission without symptoms. We changed from Vanco over to Ancef and he appears to be tolerating this well. Change to oral when he is close to discharge. Monitor for delayed reaction. As above. (3) Elevated troponin: Code(s): R79.89 - Other specified abnormal findings of blood chemistry Status: Acute Assessment and Plan: Trop was 0.212 in the first ED visit. This was discussed with the scientific editor who felt this was not clinically significant. Unclear why these were drawn as he was not having any chest pain. Troponin has been trending down since admission. Also apperas Trop always elevated. EKG normal. No ASA given the low plt, normal EKG and no CP. (4) Thrombocytopenia: Code(s): D69.6 - Thrombocytopenia, unspecified Status: Acute Assessment and Plan: Plt count was 56K in September but dropped into the 30K's felt related to the bacteremia. Overall, this is a chronic finding for this patient, presumably secondary to cirrhosis and prominent splenomegaly. Repeat plt count better at 52K. Follow (5) Chronic anemia: Code(s): D64.9 - Anemia, unspecified Status: Acute Assessment and Plan: Hgb normally in the 11 range but now in the 9-10 range this admission and stable. No melena or hematochezia but high risk of bleeding. B12 levels and iron studies noted. Follow HH. 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 Patient had a hx of HepA last year but HepA IgM negative now. AST elevated at 170 but trended down. ALT normal now. INR 1.9 with Albumin 2.4 on admission. TBili was actually normal in September but now at 11-15 range and mostly Direct. RUQ US was grossly normal without evidence of biliary dilation but limited due to his size. Hemolysis unlikely. [place] elevated Bili from bacteremia but unclear why this is not improving. Consider biliary obstruction with now climbing AP. Appreciate GI input. MRCP? (7) Obstructive sleep apnea on CPAP: Code(s): G47.33 - Obstructive sleep apnea (adult) (pediatric); Z99.89 - Dependence on other enabling machines and devices Status: Acute Assessment and Plan: Stable. CPAP made available and patient using intermittently. Continue to encourage use at night and with naps. (8) Morbid obesity: Code(s): E66.01 - Morbid (severe) obesity due to excess calories Status: Chronic Assessment and Plan: BMI 46. Weight loss is imperative in this gentleman contributing to his comorbidities. (9) Hypertension: Code(s): I10 - Essential (primary) hypertension Status: Acu
[2021-01-08 16:00] VITALS: BP 128/52; PULSE 86; RESP 20; TEMP 36.4; O2SAT 95
--- NOTE | 2021-01-08 17:00 | PCOTNOTE ---
Attempted to see Patient at this time. Patient verbalized he had just returned to bed, is very tired but can not sleep, irritated . Patient requested therapy come back in the morning, it's to late .
[2021-01-08] MEDS: MAG HYDROX/AL HYDROX/SIMETH 30 ML UDC PO (17:58)
[2021-01-08 20:15] LABS: Haptoglobin <8 mg/dL (43-212)
[2021-01-08] MEDS: HYDROcodone/acetaminophen (*CRX) 5-325 MG TABLET 1 TAB PO (20:53)
[2021-01-08 21:39] VITALS: BP 144/72; PULSE 94; RESP 20; TEMP 36.5; O2SAT 94
[2021-01-08] MEDS: BACLOFEN 5 MG TABLET PO (22:30)
[2021-01-09] VITALS: BP 133/60; PULSE 92; RESP 20; TEMP 36.5; O2SAT 94
[2021-01-09 05:28] VITALS: BP 129/62; PULSE 85; RESP 20; TEMP 35.9; O2SAT 95
[2021-01-09] MEDS: HYDROcodone/acetaminophen (*CRX) 5-325 MG TABLET 1 TAB PO ×2 (05:28→12:06)
[2021-01-09] MEDS: FUROSEMIDE INJ 40 MG/4 ML VIAL 20 MG IV PUSH ×2 (05:29→11:56)
[2021-01-09 05:39] LABS: Hematocrit 29.3 % (42.0-52.0); Hemoglobin 9.8 g/dL (14.0-18.0); Immature Platelet Fraction Pct 10.2 % (0.9-11.2); Mean Corpuscular HGB Conc 33.4 g/dl (32-36); Mean Corpuscular Hemoglobin 28.5 pg (26-34); Mean Corpuscular Volume 85.2 fl (80-100); Mean Platelet Volume 12.3 fl (7.4-10.4); Platelet Count Result 49 k/mm3 (150-375); Red Blood Count 3.44 M/mm3 (4.6-6.20); Red Cell Distribution Width 17.2 % (11.5-14.5); White Blood Count 12.2 K/mm3 (4.5-10.0)
[2021-01-09 05:49] LABS: Alanine Aminotransferase 37 U/L (4-50); Albumin Level 2.3 g/dL (3.5-5.1); Alkaline Phosphatase 177 U/L (38-126); Anion Gap 4 mmol/L (8-16); Aspartate Amino Transferase 101 U/L (17-59); Blood Urea Nitrogen 17 mg/dL (9-20); Calcium 6.9 mg/dL (8.4-10.2); Carbon Dioxide 25 mmol/L (22-30); Chloride 101 mmol/L (98-107); Estimated CRCL calculation 149 ml/min; Estimated Glomerular Filt Rate > 60; Glucose 94 mg/dL (65-110); Magnesium 1.7 mg/dL (1.6-2.3); Potassium 3.3 mmol/L (3.4-5.0); Sodium 130 mmol/L (137-145)
[2021-01-09 06:12] LABS: Band Neutrophils Percent 2 % (0-6); Eosinophils Absolute Manual 0.12 K/mm3 (0.02-0.5); Eosinophils Percent Manual 1 % (0-4); Lymphocytes Absolute Manual 0.61 K/mm3 (1.1-4.5); Monocytes Absolute Manual 0.73 K/mm3 (0.1-0.90); Monocytes Percent Manual 6 % (3-9); Neutrophils Absolute Manual 10.73 K/mm3 (1.3-6.7); Neutrophils Percent Manual 86 % (46-73); Total Cells Counted 100
[2021-01-09 06:13] LABS: Anisocytosis 1+ (NORMAL); Platelet Estimate Decreased (Adequate)
[2021-01-09 06:14] LABS: Hypochromasia 1+ (NORMAL)
[2021-01-09 08:00] VITALS: BP 120/40; PULSE 90; RESP 20; TEMP 36.6; O2SAT 96
[2021-01-09] MEDS: CALCIUM CARBONATE (TUMS) 500 MG (200 MG ELEMENTAL) PO (08:41)
[2021-01-09] MEDS: MAGNESIUM OXIDE 400 MG TABLET PO (08:41)
[2021-01-09] MEDS: POTASSIUM CHLORIDE 20 MEQ TABLET 40 MEQ PO (08:41)
--- NOTE | 2021-01-09 09:47 | PCOTNOTE ---
Declined OT this AM. Asked to be seen at a later time, too tiered to participate. Patient currently in bed with breathing machine on and asleep, bed alarm armed and call button within reach.
--- NOTE | 2021-01-09 14:44 | PM.DS ---
DS: Admitting Diagnosis Admitting Diagnosis Abdominal pain and positive blood cultures DS: Discharge Diagnosis Discharge Diagnosis (1) Cellulitis of right abdominal wall: Code(s): L03.311 - Cellulitis of abdominal wall Status: Acute Assessment and Plan: He has been started on vancomycin and levofloxacin per antibiotic stewardship recommendation. Cellulitis related to the excoriations from scratches and exacerbated by the marked edema in the panniculus. Lasix IV ordered with improvement clinically but I/Os not accurate. He states he feels the right side of the abdomen is less 'heavy'. When the cultures were finalized, Levaquin was stopped and Vanco over to Ancef. We monitored him closely but he remained free from medication reaction. WBC climbed to 14K before decreasing. No fevers. (2) Bacteremia: Code(s): R78.81 - Bacteremia Status: Acute Assessment and Plan: BCx (01/03) drawn in the first ED visit are (1of2) positive for Group B Strept. He did not meet sepsis criteria. Repeat BCx (01/04) NGTD. [place] the source was from the cellulitis. He has PCN allergy that causes hives and throat swelling. He did take the cephalexin prior to admission without symptoms. We changed from Vanco over to Ancef and he was monitored closely and tolerated this well. (3) Elevated troponin: Code(s): R79.89 - Other specified abnormal findings of blood chemistry Status: Acute Assessment and Plan: Trop was 0.212 in the first ED visit. This was discussed with the zigzag machine operator who felt this was not clinically significant. Unclear why these were drawn as he was not having any chest pain. Troponin has been trending down since admission. Also appears Trop always elevated. EKG normal. No ASA given the low plt, normal EKG and no CP. (4) Thrombocytopenia: Code(s): D69.6 - Thrombocytopenia, unspecified Status: Acute Assessment and Plan: Plt count was 56K in September but dropped into the 30K's felt related to the bacteremia. Overall, this is a chronic finding for this patient, presumably secondary to cirrhosis and prominent splenomegaly. Repeat plt count better up to 52K. (5) Chronic anemia: Code(s): D64.9 - Anemia, unspecified Status: Acute Assessment and Plan: Hgb normally in the 11 range but dropped to the 9-10 range this admission and remained stable. No melena or hematochezia but high risk of bleeding. B12 levels and iron studies noted. 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 Patient had a hx of HepA last year but HepA IgM negative now. AST elevated at 170 but trended down. ALT normal now. INR 1.9 with Albumin 2.4 on admission. TBili was actually normal in September but now at 11-15 range and mostly Direct. RUQ US was grossly normal without evidence of biliary dilation but limited due to his size. Hemolysis unlikely. [place] elevated Bili from bacteremia. Spoke with GI who was not concerned about obstructive process. AP and Bili trended down on repeat checks. Appreciate GI input. (7) Obstructive sleep apnea on CPAP: Code(s): G47.33 - Obstructive sleep apnea (adult) (pediatric); Z99.89 - Dependence on other enabling machines and devices Status: Acute Assessment and Plan: Stable. CPAP made available and patient using intermittently. Continue to encourage use at night and with naps. (8) Morbid obesity: Code(s): E66.01 - Morbid (severe) obesity due to excess calories Status: Chronic Assessment and Plan: BMI 46. Weight loss is imperative in this gentleman contributing to his comorbidities. Adhering to a healthy lifestyle was discussed with the patient. (
[2021-01-09 16:00] VITALS: BP 128/54; PULSE 87; RESP 20; TEMP 36.4; O2SAT 96
== END 2021-01-09 17:47 | disposition home or self-care (01) | DRG 383 ==
LOC: ANHED 14:27 → ANHIMU 17:54 → ANH2MED 01-09 15:04 → ANHIMU 01-13 09:50
PROVIDERS: Internal Medicine Gastroenterology; Physician Assistant; Admitting Provider Hospitalist; Emergency Provider Emergency Medicine; Visit Provider Internal Medicine
DX: L03.311 Cellulitis of abdominal wall (principal); R78.81 Bacteremia; D69.6 Thrombocytopenia, unspecified; E66.01 Morbid (severe) obesity due to excess calories; Z68.45 Body mass index [BMI] 70 or greater, adult; D64.9 Anemia, unspecified; K75.81 Nonalcoholic steatohepatitis (NASH); K74.69 Other cirrhosis of liver; G47.33 Obstructive sleep apnea (adult) (pediatric); J45.909 Unspecified asthma, uncomplicated; I10 Essential (primary) hypertension; R77.8 Other specified abnormalities of plasma proteins; Z99.89 Dependence on other enabling machines and devices; Z79.899 Other long term (current) drug therapy; Z88.0 Allergy status to penicillin
CPT/HCPCS: 36415; 76705; 80053; 80202; 82248; 82607; 82728; 82746; 83010; 83540; 83550; 83605; 83615; 83735; 84100; 84439; 84443; 84480; 84484; 85025; 85027; 85055; 85610; 85730; 86140; 86709; 86880; 87040; 96365; 97161; 97165; 99285; A9270; J0690; J1940; J1956; J2270; J2405; J3370; J3475; J7030